=== PATIENT | male | born 1945 | race Caucasian/White ===

== ENCOUNTER 2019-02-10 03:11 | Outpatient (CLI) | payer OTHER | END 2019-02-10 03:12 | disposition critical access hospital (66) | LOC: EMS 03:11 | PROVIDERS: ATTEND Surgery | DX: R07.89 Other chest pain (principal) | CPT/HCPCS: A0425; A0429 ==

== ENCOUNTER 2019-02-10 03:18 | Observation (INO) | payer OTHER ==
[2019-02-10 03:58] LABS: BASOPHILS % (AUTO) 0.5 %; EOSINOPHILS # (AUTO) 0.6 10^3/uL (0.0-0.7); EOSINOPHILS % (AUTO) 7.9 %; HGB - HEMOGLOBIN 13.1 g/dL (14.0-18.0); LYMPHOCYTES # (AUTO) 1.3 10^3/uL (1.5-3.5); LYMPHOCYTES % (AUTO) 18.1 %; MEAN CORPUSCULAR HEMOGLOBIN 32.1 pg (27.0-31.0); MEAN CORPUSCULAR HGB CONC 33.6 g/dL (32.0-36.0); MEAN CORPUSCULAR VOLUME 95.6 fL (80.0-94.0); MEAN PLATELET VOLUME 8.7 fL (7.4-11.4); MONOCYTES # (AUTO) 0.6 10^3/uL (0.0-1.0); MONOCYTES % (AUTO) 8.7 %; NEUTROPHILS # (AUTO) 4.7 10^3/uL (1.5-6.6); NEUTROPHILS % (AUTO) 64.4 %; PLT - PLATELET COUNT 195 10^3/uL (130-450); RED BLOOD COUNT 4.08 10^6/uL (4.70-6.10); RED CELL DISTRIBUTION WIDTH 13.1 % (12.0-15.0); WHITE BLOOD COUNT 7.3 x10^3/uL (4.8-10.8)
--- NOTE | 2019-02-10 04:08 | ED Physician Documentation ---
<Дмитрий Villanueva - Last Filed: 02/10/19 09:33> PD HPI CHEST PAIN - Stated complaint Stated Complaint: CP - Chief complaint Chief Complaint: Cardiac PD PAST MEDICAL HISTORY - Present Medications Home Medications: Ambulatory Orders Medication Instructions Recorded Confirmed Bisacodyl [Dulcolax] 5 mg PO DAILY PRN 02/10/19 02/10/19 Isosorbide Mononitrate [Isosorbide 30 mg PO DAILY 02/10/19 02/10/19 Mononitrate ER] Loratadine [Allergy] 10 mg PO DAILY 02/10/19 02/10/19 Losartan Potassium 25 mg PO DAILY 02/10/19 02/10/19 Nitroglycerin [Nitrostat] 0.4 mg PO [id number] PRN 02/10/19 02/10/19 Pantoprazole Sodium 40 mg PO QDAC 02/10/19 02/10/19 Potassium Chloride 10 meq PO DAILY 02/10/19 02/10/19 Simvastatin 40 mg PO QPM 02/10/19 02/10/19 Tamsulosin HCl [Flomax] 0.4 mg PO QPM 02/10/19 02/10/19 Verapamil HCl [Verapamil ER] 180 mg PO DAILY 02/10/19 02/10/19 Warfarin Sodium 1.25 mg PO TU@2100 02/10/19 02/10/19 Warfarin Sodium 2.5 mg PO SUTUWETHFRSA@2100 02/10/19 02/10/19 - Allergies Allergies/Adverse Reactions: Allergies Allergy/AdvReac Type Severity Reaction Status Date / Time No Known Drug Allergies Allergy Verified 02/10/19 03:25 Procedures - IVC sono (time) 0905 Bedside IVC sono: IVC measures (cm) (1.19), Dehydration (est 1 liter deficit) PD MEDICAL DECISION MAKING - ED course ED course: Patient with episode of chest pain that is resolved on arrival to the emergency department has minimally elevated troponin and this elevates further at 2 hours also in a minimally elevated fashion. He is dehydrated on interrogation the inferior vena cava and is administered saline. He is administered his morning medications for hypertension including verapamil losartan and imdur. He is admitted to observation for rising trop. Departure - Departure Disposition: ED Place in Observation Clinical Impression: Angina pectoris Condition: Stable Discharge Date/Time: 02/10/19 10:50 <Maria Elena Mesa Last Filed: 02/10/19 21:04> PD HPI CHEST PAIN - History obtained from History obtained from: Patient - History of Present Illness Timing - onset: Today Timing - onset during: Sleep Timing - details: Abrupt onset Pain level now: 0 Quality: Pain Location: Left chest Radiation: Left upper extremity Associated symptoms: No: Shortness of air, Nausea, Vomiting, Feeling faint / dizzy, General Weakness, Palpitations, Cough Similar symptoms before: Work up / diagnostics Recently seen: Not recently seen - Additional information Additional information: This is a 73-year-old man with a history of CVA who just moved to [facility] 2 days ago with his who presents by ambulance with c/o chest pain. Patient states that he woke up sometime after midnight and was having pain in the left side of his chest. He notified his who gave him 2 sublingual nitroglycerin tablets but no aspirin and called the ambulance. He does not know how long this pain lasted but it was still present when he was on his way here in the ambulance. He said now it is completely gone and he feels 100% better. Patient says that he has had pain like this before when he was living in [place] but never had a heart attack. He does have a history of stroke and has a brain shunt. At one point he told me "you are asking me questions I do not know the answer to". He did state that he was not short of breath had not felt dizzy and had no nausea or vomiting. He is 100% disabled from the . Review of Systems Unable to obtain: Other (History of stroke) Constitutional: denies: Fever Cardiac: reports: Chest pain / pressure Respiratory: denies: Dyspnea, Cough GI: denies: Nausea, Vomiting Neurologic: reports: Other (Left arm paralysis. Left leg weakness due to prior stroke. He normally ambulates with a cane.) PD PAST MEDICAL HISTORY - Past Medical History Past Medical History: Yes Cardiovascular: Hypertension, High cholesterol Neuro: CVA GI: GERD Other Past Medical History: Constipation; Seasonal Allergies - Past Surgical History Past Surgical History: Yes Ortho: Other Cardiovascular: Coronary stent HEENT: Other - Social History Does the pt smoke?: No Smoking Status: Never smoker Does the pt drink ETOH?: No Does the pt have substance abuse?: No - Immunizations Immunizations are current?: Yes - POLST Patient has POLST: No PD ED PE NORMAL - Vitals Vital signs reviewed: Yes - General General: Alert and oriented X 3, No acute distress, Well developed/nourished - HEENT HEENT: Atraumatic, PERRL, Moist mucous membranes - Neck Neck: No adenopathy, Other (There is a palpable shunt tubing in the right side of his neck) - Cardiac Cardiac: RRR, No murmur, Strong equal pulses - Respiratory Respiratory: No respiratory distress, Clear bilaterally - Abdomen Abdomen: Normal bowel sounds, Soft - Derm Derm: Normal color, Warm and dry, No rash - Extremities Extremities: Other (Flexion contractures of the left upper extremity. There is a flexion contracture at the left ankle. No obvious injury to the extremities.) - Neuro Neuro: Other (He is alert and oriented to the fact that he is at a hospital. He is unable to move the left arm. He can wiggle the toes and has some movement with the left leg. Sensation is intact light touch bilaterally.) - Psych Psych: Normal mood Results - Vitals Vitals: Vital Signs - 24 hr 02/10/19 02/10/19 02/10/19 03:19 03:38 05:29 Temperature 36.9 C Heart Rate 88 93 83 Respiratory 16 15 15 Rate Blood Pressure 193/115 H 182/105 H 179/104 H O2 Saturation 98 97 96 02/10/19 02/10/19 07:53 09:34 Temperature Heart Rate 75 74 Respiratory 14 18 Rate Blood Pressure 210/98 H 206/116 H O2 Saturation 99 99 Oxygen O2 Source Room air - EKG (time done) 0657 Rate: Rate (enter#) (80) Rhythm: NSR Intervals: No: Wide QRS Ischemia: Normal ST segments Compare to prior EKG: Old EKG unavailable 0319 Rate: Rate (enter#) (888) Rhythm: NSR Intervals: No: Wide QRS Ischemia: Normal ST segments Compare to prior EKG: Unchanged from prior EKG - Labs Labs: Laboratory Tests 02/10/19 02/10/19 02/10/19 03:45 03:47 03:47 WBC 7.3 RBC 4.08 L Hgb 13.1 L Hct 39.0 L MCV 95.6 H MCH 32.1 H MCHC 33.6 RDW 13.1 Plt Count 195 MPV 8.7 Neut # (Auto) 4.7 Lymph # (Auto) 1.3 L Benton # (Auto) 0.6 Eos # (Auto) 0.6 Baso # (Auto) 0.0 Absolute Nucleated RBC 0.00 Nucleated RBC % 0.0 PT INR Sodium 145 Potassium 3.7 Chloride 112 H Carbon Dioxide 25 Anion Gap 8.0 BUN 25 H Creatinine 1.1 Estimated GFR (MDRD) 66 L Glucose 106 H Calcium 8.9 Total Bilirubin 0.4 AST 20 ALT 23 Alkaline Phosphatase 99 Troponin I High Sens 23.9 H* Total Protein 6.5 L Albumin 3.5 Globulin 3.0 Albumin/Globulin Ratio 1.2 Lipase 45 02/10/19 02/10/19 03:47 07:10 WBC RBC Hgb Hct MCV MCH MCHC RDW Plt Count MPV Neut # (Auto) Lymph # (Auto) Benton # (Auto) Eos # (Auto) Baso # (Auto) Absolute Nucleated RBC Nucleated RBC % PT 27.0 H INR 2.5 H Sodium Potassium Chloride Carbon Dioxide Anion Gap BUN Creatinine Estimated GFR (MDRD) Glucose Calcium Total Bilirubin AST ALT Alkaline Phosphatase Troponin I High Sens 41.3 H* Total Protein Albumin Globulin Albumin/Globulin Ratio Lipase - Rads (name of study) CXR Radiology: See rad report (Neg acute) PD MEDICAL DECISION MAKING - ED course Complexity details: reviewed results, d/w patient ED course: Patient's EKG does not show a acute ischemic changes. His initial troponin is minimally elevated at 23. Chest x-ray was clear. He was completely pain-free during his emergency department stay. He was given 4 baby aspirin. Repeat troponin and EKG will be obtained. EKG does not show any changes compared to the prior EKG obtained here today. Repeat troponin is pending.
[2019-02-10] MEDS ORDERED: ASPIRIN CHEW 81 MG TABLET PO STA (04:09)
[2019-02-10 04:10] LABS: ALBUMIN 3.5 g/dL (3.2-5.5); ALBUMIN/GLOBULIN RATIO 1.2 (1.0-2.2); BILIRUBIN,TOTAL 0.4 mg/dL (0.2-1.0); CALCIUM 8.9 mg/dL (8.5-10.3); CREATININE 1.1 mg/dL (0.6-1.2); TOTAL PROTEIN 6.5 g/dL (6.7-8.2)
--- NOTE | 2019-02-10 04:50 | XRAY Report ---
Reason: chest pain Procedure Date: 02/10/2019 Accession Number: [id number] / [id number] Procedure: XR - Chest 1 View X-Ray CPT Code: 06783 Final Report FULL RESULT: EXAM: CHEST RADIOGRAPHY EXAM DATE: 02/10/2019 04:41 AM. CLINICAL HISTORY: Chest pain. COMPARISON: None. TECHNIQUE: 1 view. FINDINGS: Lungs/Pleura: No alveolar consolidation or pleural effusion seen. No pneumothorax. Mediastinum: Within exam limitations, the cardiomediastinal contour is normal. Other: LAND DEVELOPMENT PROJECT MANAGER shunt tube overlies the right hemithorax. Old left rib fractures. Degenerative changes in the shoulders. IMPRESSION: 1. No acute cardiopulmonary abnormality seen. RADIA
[2019-02-10 07:38] LABS: INR 2.5 (0.8-1.2)
[2019-02-10] MEDS ORDERED: LOSARTAN 50 MG TABLET PO STA (09:11)
[2019-02-10] MEDS ORDERED: VERAPAMIL ER 180 MG TABLET PO STA (09:11)
[2019-02-10] MEDS ORDERED: ISOSORBIDE MONONITRATE ER 30 MG TABLET PO STA (09:12)
[2019-02-10] MEDS ORDERED: NITROGLYCERIN SL 0.4 MG TABLET SL SCH (10:08)
[2019-02-10] MEDS ORDERED: SODIUM CHLORIDE FLUSH 0.9% 10 ML SYRINGE IVP PRN (12:27)
[2019-02-10] MEDS ORDERED: PROCHLORPERAZINE 10 MG/2 ML VIAL IVP PRN (12:27)
[2019-02-10] MEDS ORDERED: ACETAMINOPHEN 325 MG TABLET PO PRN (12:27)
[2019-02-10] MEDS ORDERED: NITROGLYCERIN SL 0.4 MG TABLET SL PRN (12:28)
[2019-02-10] MEDS ORDERED: BISACODYL 5 MG TABLET PO PRN (12:28)
[2019-02-10] MEDS: SODIUM CHLORIDE FLUSH 0.9% 10 ML SYRINGE IVP SCH (19:08)
[2019-02-10] MEDS ORDERED: WARFARIN 2.5 MG TABLET PO SCH (21:00)
[2019-02-10] MEDS ORDERED: TAMSULOSIN 0.4 MG CAPSULE PO SCH (21:00)
[2019-02-10] MEDS ORDERED: traZODone 50 MG TABLET PO STA (21:38)
[2019-02-10] MEDS: ISOSORBIDE MONONITRATE ER 30 MG TABLET PO SCH (22:02)
[2019-02-10] MEDS: FAMOTIDINE 20 MG TABLET PO SCH (22:02)
--- NOTE | 2019-02-11 00:05 | HISTORY & PHYSICAL EXAMINATION ---
DATE OF SERVICE: 02/10/2019 Physician: Marion Coats MD HISTORY OF PRESENT ILLNESS: This is a 73-year-old white male with a history of stroke, coronary artery disease with stenting approximately 10 years ago in [place], history of a brain aneurysm and SOCKET WELDER HELPER shunt, history of dementia and BPH. The patient and just moved to [facility] yesterday, and their moving truck arrived today. The details of this move are not available, because the patient is a poor historian. The patient awoke in the middle of the night with chest pain for which he took nitroglycerin that was approximately five or more years old and alsso swallowed it. He waited an hour with continued pain and then took a second sublingual nitroglycerin and then a third sublingual, and then an ambulance was called, and he was brought to the emergency room. His chest pain was resolved at the point of coming to the ER, and there has been none since. I called the , who was available at home, who gave me more of the background history as above. The patient cannot give me details, he for example says that "when he had his stroke he was told to use NTG if needed". PAST MEDICAL HISTORY 1. Brain aneurysm unknown course but ultimately needing an intracerebral SOCKET WELDER HELPER shunt. 2. Stroke, affecting his left side. 3. History of coronary artery disease with stents in 2007. 4. Dementia. 5. BPH. ALLERGIES: NONE. MEDICATIONS 1. Sublingual nitroglycerin p.r.n. 2. Warfarin 1.25 alternating with 2.5 mg daily. 3. Protonix daily. 4. Simvastatin 40 mg every night. 5. Dulcolax p.r.n. 6. Flomax 0.4 mg every night. 7. Losartan 25 mg daily. 8. Loratadine 10 mg daily. 9. Imdur 30 mg daily or bid, unclear. 10. Verapamil 180 mg daily. 11. Potassium chloride 10 mEq daily. FAMILY HISTORY: No inherited diseases. SOCIAL HISTORY: The patient was a remote smoker, drinks no alcohol. No illicit drug use. The patient lives with his . They just moved to the [place] yesterday. Other details are not available about his social history. REVIEW OF SYSTEMS: A comprehensive review of systems was performed by speaking to the patient and to the by phone, the pertinent positives are listed, the rest are negative. PHYSICAL EXAMINATION GENERAL: Elderly white male. He has a mild facial droop. His speech is normal. He appears in no distress. VITAL SIGNS: Initial blood pressure was 206/116, and now he is in the 150s-160s over 80s-90s, heart rate is 70-90 and regular, afebrile, room air saturation 97%. HEENT: Reveals a left facial droop of the lower face. He has normal speech. Oral mucosa is moist. NECK: No JVD or carotid bruits. CHEST: Clear. HEART: Normal heart sounds, no murmurs. ABDOMEN: Soft with positive bowel sounds, nontender. No organomegaly. EXTREMITIES: No clubbing, cyanosis, or edema. NEUROLOGIC: Left arm is in a contract position and he does not move it. The left leg has 4/5 strength. The right leg and right arm had normal strength. His memory is poor. LABORATORY DATA: Sodium 145, potassium 3.7, BUN 25, creatinine 1.1. Liver tests normal. Troponin at bedtime was 23, then 41. Normal lipase and bilirubin. White blood count 7.3, hemoglobin 13.1 with MCV high at 95, platelet count normal 195. INR 2.5. CHEST X-RAY: No active pulmonary disease and heart size is within normal limits. A SOCKET WELDER HELPER shunt is seen overlying the right hemithorax. There are old left- sided rib fractures. EKG: Normal sinus rhythm, rate of 88 and within normal limits. IMPRESSION 1. Chest pain, probable angina, which did not respond to old and probably not potent sublingual nitroglycerin. 2. History of coronary artery disease with stents. 3. History of stroke. 4. Dementia. 5. Benign prostatic hypertrophy. 6. Anticoagulated, for unknown diagnosis. PLAN: Place the patient in Observation status on telemetry. Cycle troponins. Recheck his EKG tomorrow for changes. Increase antianginal treatment with Imdur daily to b.i.d. and also I reminded the that he needs fresh Sublingual nitroglycerin. Probable medical management will be advised for this patient unless there is a further increase in his troponin to a high value. The patient will need Cardiology follow-up to consider outpatient stress testing for evaluation of his recurrence of chest pain, that has not happened now in over 10 years, according to the . Continue with his medications for BPH, the anticoagulation, and his cholesterole. Check lipids and treat per guidelines. CODE STATUS: FULL CODE. DEEP VENOUS THROMBOSIS PROPHYLAXIS: He is anticoagulated, add SCDs. ATTESTATION: The patient is expected to be discharged or transferred to another facility within 96 hours: Yes. TD: 02/10/2019 20:05 ANGEL
[2019-02-11] MEDS: SODIUM CHLORIDE FLUSH 0.9% 10 ML SYRINGE IVP SCH ×2 (01:30→08:12)
[2019-02-11 05:48] LABS: BASOPHILS % (AUTO) 0.4 %; EOSINOPHILS # (AUTO) 0.6 10^3/uL (0.0-0.7); EOSINOPHILS % (AUTO) 8.4 %; HGB - HEMOGLOBIN 12.5 g/dL (14.0-18.0); LYMPHOCYTES # (AUTO) 1.4 10^3/uL (1.5-3.5); LYMPHOCYTES % (AUTO) 20.2 %; MEAN CORPUSCULAR HEMOGLOBIN 31.3 pg (27.0-31.0); MEAN CORPUSCULAR HGB CONC 32.8 g/dL (32.0-36.0); MEAN CORPUSCULAR VOLUME 95.3 fL (80.0-94.0); MEAN PLATELET VOLUME 9.2 fL (7.4-11.4); MONOCYTES # (AUTO) 0.6 10^3/uL (0.0-1.0); MONOCYTES % (AUTO) 8.1 %; NEUTROPHILS # (AUTO) 4.3 10^3/uL (1.5-6.6); NEUTROPHILS % (AUTO) 62.6 %; PLT - PLATELET COUNT 196 10^3/uL (130-450); WHITE BLOOD COUNT 6.9 x10^3/uL (4.8-10.8)
[2019-02-11 05:56] LABS: INR 2.5 (0.8-1.2); PT - PROTHROMBIN TIME 27.5 secs (9.9-12.6)
[2019-02-11 06:08] LABS: BUN - BLOOD UREA NITROGEN 21 mg/dL (6-20); CALCIUM 8.8 mg/dL (8.5-10.3); CARBON DIOXIDE - CO2 25 mmol/L (21-32); CHLORIDE 109 mmol/L (101-111); CHOL/HDL RATIO 5.4 (<5.0); CHOLESTEROL 189 mg/dL; GFR - MDRD 73 (>89); GLUCOSE 94 mg/dL (70-100); HDL CHOLESTEROL 35 mg/dL; LDL CHOLESTEROL,CALCULATED 118 mg/dL; LDL/HDL RATIO 3.4 (<3.6); SODIUM 141 mmol/L (135-145); VLDL CHOLESTEROL 36 mg/dL
[2019-02-11] MEDS: FAMOTIDINE 20 MG TABLET PO SCH (08:11)
[2019-02-11] MEDS: ISOSORBIDE MONONITRATE ER 30 MG TABLET PO SCH (08:11)
[2019-02-11] MEDS ORDERED: ISOSORBIDE MONONITRATE ER 30 MG TABLET PO SCH (09:00)
[2019-02-11] MEDS ORDERED: FENOFIBRATE 48 MG TABLET PO SCH (09:00)
[2019-02-11] MEDS ORDERED: LORATADINE 10 MG TABLET PO SCH (09:00)
[2019-02-11] MEDS ORDERED: LOSARTAN 50 MG TABLET PO SCH (09:00)
[2019-02-11] MEDS ORDERED: ASPIRIN EC 81 MG TABLET PO SCH (09:00)
[2019-02-11] MEDS ORDERED: VERAPAMIL ER 180 MG TABLET PO SCH (09:00)
--- NOTE | 2019-02-11 11:57 | Discharge Plan ---
Discharge Plan Problem Reviewed?: Yes Disposition: Home, Self Care Condition: Stable Prescriptions: Nitroglycerin [Nitrostat] 0.4 mg SL Q5MIN PRN #100 tablet PRN Reason: Chest Pain Isosorbide Mononitrate ER [Imdur] 30 mg PO BID #14 tablet Diet: Cardiac Activity Restrictions: Activity as Tolerated Assistance Devices: Cane, Other (Brace) Instruction Topics: Nitroglycerin Fast Acting, Angina, Nitroglycerin Long Acting Health Concerns: You were here after an episode of angina, brought on by the current stress of moving your household to [facility] from [place], [place] and from running out of the Isosorbide tablets. Plan of Treatment: Fresh prescriptions for sublingual Nitroglycerine as needed and the long-acting Isordil have been prescribed. Resume all your other usual medications. You need to establish care with a Primary Care Provider and Instructor Of Spanish. Care Goals: Goals are to stabilize symptoms, establish care with a local doctor and a Instructor Of Spanish. Assessment: The patient and understand and are in agreement with the plan. No Smoking: If you smoke, Please STOP! Call for help.
--- NOTE | 2019-02-11 12:21 | DISCHARGE SUMMARY ---
Discharge Summary Admit Date: 02/10/19 Discharge Date: 02/11/19 Discharging Provider: Dr Marion Coats Primary Care Provider: None Code Status: Attempt Resuscitation Condition at Discharge: Stable Discharge Disposition: 01 Home, Self Care - DIAGNOSES Admission Diagnoses: 1) Chest pain 2) Hx CAD 3) Hx CVA 4) Dementia 5) BPH 6) Anticoagulated Discharge Diagnoses with Status of Each Condition: See below - HPI History of Present Illness: This is a 73-year-old white male with a history of BPH, dementia, prior CVA, left arm is contracted and he uses a brace to walk, and he moved with his 2 days ago from [facility] to [facility]. He awoke with chest pain and swallowed a sublingual nitroglycerin, had no relief, then took 2 more sublingual nitroglycerin correctly and an ambulance was called. He had no chest pain on presentation. His gave me the history (by phone) of CAD with stents 10 years ago and no chest pain since that time, and the nitroglycerin sublingual is at least 5 years old. The first hs-troponin was 23 but the next lindy to 40 and he was placed in Observation for evaluating chest pain. - HOSPITAL COURSE Hospital Course: 1) Chest pain. This was angina from the [place], plus using out-of-date sl NTG (that were at least 5 years old). Also, the revealed that she has been unable to give the patient his usual Isordil b.i.d. doses for 2 days, because she cannot find it in the moving boxes or they have run out. The hs- troponins did nearly double from 23 to 41 (then went down to 27), but the follow-up EKG showed no changes from the first EKG and was overall WNL. He was given new prescriptions for sl NTG and a 1 week prescription for Isrdil 30 mg po b.i.d., while [facility] He was discharged is stable condition, with no further chest pain, even during ambulation while here, and was advised to establish with a PCP and Concrete Float Maker. 2) Hx of CAD He was kept on his statin and other meds 3) Hx CVA He ambulates with a cane and a brace on his leg 4) S/P BAND SHOVER shunt This was placed "after being diagnosed with a cerebral aneurysm", per the . It is unclear if it created a hemorrhage and raised intra-cranial pressure, since we have no records. 5) Dementia He has poor short term memory 6) BPH His meds were continued 7) Anticoagulated He is in sinus rhythm, therefore the diagnosis that required the anticoagulation is unknown. He was kept on his same dose since the INR was 2.5. 8) ASSINIBOINE AND [place] TRIBES He wears a hearing aide. - ALLERGIES Allergies/Adverse Reactions: Allergies Allergy/AdvReac Type Severity Reaction Status Date / Time No Known Drug Allergies Allergy Verified 02/10/19 03:25 - MEDICATIONS Home Medications: Ambulatory Orders Medication Instructions Recorded Confirmed Bisacodyl [Dulcolax] 5 mg PO DAILY PRN 02/10/19 02/10/19 Isosorbide Mononitrate [Isosorbide 30 mg PO DAILY 02/10/19 02/10/19 Mononitrate ER] Loratadine [Allergy] 10 mg PO DAILY 02/10/19 02/10/19 Losartan Potassium 25 mg PO DAILY 02/10/19 02/10/19 Nitroglycerin [Nitrostat] 0.4 mg PO [id number] PRN 02/10/19 02/10/19 Pantoprazole Sodium 40 mg PO QDAC 02/10/19 02/10/19 Potassium Chloride 10 meq PO DAILY 02/10/19 02/10/19 Simvastatin 40 mg PO QPM 02/10/19 02/10/19 Tamsulosin HCl [Flomax] 0.4 mg PO QPM 02/10/19 02/10/19 Verapamil HCl [Verapamil ER] 180 mg PO DAILY 02/10/19 02/10/19 Warfarin Sodium 1.25 mg PO TU@209902/10/19 02/10/19 Warfarin Sodium 2.5 mg PO SUTUWETHFRSA@2100 02/10/19 02/10/19 Isosorbide Mononitrate ER [Imdur] 30 mg PO BID #14 tablet 02/11/19 Nitroglycerin [Nitrostat] 0.4 mg SL Q5MIN PRN #100 tablet 02/11/19 - PHYSICAL EXAM AT DISCHARGE General Appearance: positive: No acute distress, Alert Eyes Bilateral: positive: Other (ASSINIBOINE AND [place] TRIBES) ENT: positive: No signs of dehydration Neck: positive: Nml inspection, No JVD Respiratory: positive: No respiratory distress, Breath sounds nml Cardiovascular: positive: Regular rate & rhythm, No murmur Abdomen: positive: Non-tender, No distention Skin: positive: Color nml Extremities: positive: No pedal edema Neurologic/Psychiatric: positive: Other (L arm and hand contracture, mild L facial dropp, L leg has 4/5 strength) - LABS Result Diagrams: 02/11/19 05:22 02/11/19 05:22 - DIAGNOSTIC IMAGING Diagnostic Imaging Results: Final report reviewed - FOLLOW UP Follow Up: He needs to establish with a [facility] P[facility] or a local PCP. - TIME SPENT Time Spent in Discharge (Minutes): 30
[2019-02-11 13:24] VITALS: BP 177/95
[2019-02-11] MEDS ORDERED: ATORVASTATIN 10 MG TABLET PO SCH (21:00)
[2019-02-13] MEDS ORDERED: WARFARIN 2.5 MG TABLET PO SCH (21:00)
== END 2019-02-11 12:38 | disposition home or self-care (01) ==
LOC: ED 03:18 → MS2 10:04
PROVIDERS: ADMIT Internal Medicine; ATTEND Internal Medicine
DX: I25.119 Atherosclerotic heart disease of native coronary artery with unspecified angina pectoris (principal); I10 Essential (primary) hypertension; I69.354 Hemiplegia and hemiparesis following cerebral infarction affecting left non-dominant side; F03.90 Unspecified dementia, unspecified severity, without behavioral disturbance, psychotic disturbance, mood disturbance, and anxiety; N40.0 Benign prostatic hyperplasia without lower urinary tract symptoms; Z79.01 Long term (current) use of anticoagulants; H91.90 Unspecified hearing loss, unspecified ear; Z95.5 Presence of coronary angioplasty implant and graft; Z98.2 Presence of cerebrospinal fluid drainage device; Z87.891 Personal history of nicotine dependence; E86.0 Dehydration; E78.00 Pure hypercholesterolemia, unspecified
CPT/HCPCS: 36415; 71045; 80048; 80053; 80061; 83690; 84484; 85025; 85610; 93005; 97161; 99284; 99285; A9270; G0378; 83721

== ENCOUNTER 2019-04-12 22:24 | Outpatient (CLI) | payer OTHER | END 2019-04-12 22:25 | disposition EMS.NT | LOC: EMS 22:24 | PROVIDERS: ATTEND Surgery | DX: Z03.89 Encounter for observation for other suspected diseases and conditions ruled out (principal) ==

== ENCOUNTER 2019-05-03 13:12 | Outpatient (CLI) | payer OTHER, MEDICARE | END 2019-05-03 13:13 | disposition home or self-care (01) | LOC: LAB 13:12 | PROVIDERS: ATTEND Internal Medicine | DX: Z79.01 Long term (current) use of anticoagulants (principal) | CPT/HCPCS: 85610 ==

== ENCOUNTER 2019-05-04 01:40 | Outpatient (CLI) | payer OTHER | END 2019-05-04 01:41 | disposition critical access hospital (66) | LOC: EMS 01:40 | PROVIDERS: ATTEND Surgery | DX: R07.89 Other chest pain (principal) | CPT/HCPCS: A0425; A0427 ==

== ENCOUNTER 2019-05-04 01:41 | Emergency (ER) | payer MEDICARE, OTHER ==
--- NOTE | 2019-05-04 01:43 | ED Physician Documentation ---
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 denies any hx of pe/dvt.) Review of Systems Ten Systems: 10 systems reviewed and negative Constitutional: reports: Reviewed and negative Eyes: reports: Reviewed and negative Ears: reports: Reviewed and negative Nose: reports: Reviewed and negative Throat: reports: Reviewed and negative Cardiac: reports: Chest pain / pressure Respiratory: reports: Reviewed and negative GI: reports: Reviewed and negative : reports: Reviewed and negative Skin: reports: Reviewed and negative Musculoskeletal: reports: Reviewed and negative Neurologic: reports: Reviewed and negative Psychiatric: reports: Reviewed and negative Endocrine: reports: Reviewed and negative Immunocompromised: reports: Reviewed and negative PD PAST MEDICAL HISTORY - Present Medications Home Medications: Ambulatory Orders Medication Instructions Recorded Confirmed Isosorbide Mononitrate [Isosorbide 30 mg PO DAILY 02/10/19 02/10/19 Mononitrate ER] Loratadine [Allergy] 10 mg PO DAILY 02/10/19 02/10/19 Losartan Potassium 25 mg PO DAILY 02/10/19 02/10/19 Nitroglycerin [Nitrostat] 0.4 mg PO [id number] PRN 02/10/19 02/10/19 Pantoprazole Sodium 40 mg PO QDAC 02/10/19 02/10/19 Potassium Chloride 10 meq PO DAILY 02/10/19 02/10/19 Simvastatin 40 mg PO QPM 02/10/19 02/10/19 Tamsulosin HCl [Flomax] 0.4 mg PO QPM 02/10/19 02/10/19 Verapamil HCl [Verapamil ER] 180 mg PO DAILY 02/10/19 02/10/19 Warfarin Sodium 1.25 mg PO TU@209902/10/19 02/10/19 Warfarin Sodium 2.5 mg PO [id number]@2100 02/10/19 02/10/19 bisacodyL [Dulcolax] 5 mg PO DAILY PRN 02/10/19 02/10/19 Isosorbide Mononitrate ER [Imdur] 30 mg PO BID #14 tablet 02/11/19 Nitroglycerin [Nitrostat] 0.4 mg SL Q5MIN PRN #100 tablet 02/11/19 Nitroglycerin 0.4 mg SL Q5MIN PRN #7 tab.subl 05/04/19 - Allergies Allergies/Adverse Reactions: Allergies Allergy/AdvReac Type Severity Reaction Status Date / Time No Known Drug Allergies Allergy Verified 02/10/19 03:25 PD ED PE NORMAL - Vitals Vital signs reviewed: Yes - General General: Alert and oriented X 3, No acute distress, Well developed/nourished - HEENT HEENT: Atraumatic, PERRL, Pharynx benign - Neck Neck: Supple, no meningeal sign, No JVD, No bruit - Cardiac Cardiac: RRR, Strong equal pulses - Respiratory Respiratory: No respiratory distress, Clear bilaterally - Abdomen Abdomen: Normal bowel sounds, Soft, Non tender, Non distended - Derm Derm: Warm and dry, Other (scar on scalp from previous craniotomy.) - Extremities Extremities: Other (contraction of LUE and weaknes of LLE. both chronic in nature. ) - Neuro Neuro: Alert and oriented X 3 - Psych Psych: Normal mood, Normal affect Results - Vitals Vitals: Vital Signs - 24 hr 05/04/19 05/04/19 05/04/19 01:45 03:15 03:30 Temperature 36.7 C Heart Rate 77 72 76 Respiratory 18 15 16 Rate Blood Pressure 175/108 H 172/87 H 176/92 H O2 Saturation 94 94 96 Oxygen O2 Source Room air - EKG (time done) 01:46 Rate: Other (124 a-fib no stemi) Rhythm: Atrial fibrillation [place]: Normal Intervals: Prolonged QT Ischemia: Non specific changes 03:39 Rate: Rate (enter#) (74) Rhythm: NSR [place]: LAD Intervals: Normal [place] QRS: Normal Ischemia: Non specific changes Compare to prior EKG: Changed from prior EKG Computer interpretation: Agree with computer - Labs Labs: Laboratory Tests 05/04/19 05/04/19 05/04/19 01:59 02:55 02:55 WBC 10.4 RBC 4.08 L Hgb 12.8 L Hct 38.6 L MCV 94.6 H MCH 31.4 H MCHC 33.2 RDW 13.4 Plt Count 165 MPV 8.8 Neut # (Auto) 7.5 H Lymph # (Auto) 1.4 L [place] # (Auto) 0.7 Eos # (Auto) 0.6 Baso # (Auto) 0.0 Absolute Nucleated RBC 0.00 Nucleated RBC % 0.0 PT 14.2 H INR 1.3 H APTT 26.6 Sodium 144 Potassium 3.7 Chloride 109 Carbon Dioxide 24 Anion Gap 11.0 BUN 26 H Creatinine 1.0 Estimated GFR (MDRD) 73 L Glucose 105 H Calcium 8.7 Total Bilirubin 0.5 AST 18 ALT 18 Alkaline Phosphatase 103 Total Creatine Kinase 31 Troponin I High Sens B-Natriuretic Peptide Total Protein 6.4 L Albumin 3.4 Globulin 3.0 Albumin/Globulin Ratio 1.1 Lipase 48 05/04/19 05/04/19 05/04/19 02:55 02:55 03:45 WBC RBC Hgb Hct MCV MCH MCHC RDW Plt Count MPV Neut # (Auto) Lymph # (Auto) [place] # (Auto) Eos # (Auto) Baso # (Auto) Absolute Nucleated RBC Nucleated RBC % PT INR APTT Sodium Potassium Chloride Carbon Dioxide Anion Gap BUN Creatinine Estimated GFR (MDRD) Glucose Calcium Total Bilirubin AST ALT Alkaline Phosphatase Total Creatine Kinase Troponin I High Sens 10.6 14.5 B-Natriuretic Peptide 68 Total Protein Albumin Globulin Albumin/Globulin Ratio Lipase PD MEDICAL DECISION MAKING - ED course Complexity details: reviewed old records (shows previous hx of cad and recent admission for rule out. ), re-evaluated patient (patient updated. he is pain free. will provide a short term prescription for sl nitro. ekg neg x 2, trop neg x 2, although a delta trop is noted but still negative also compared to previous elevated trops on previous admission. did discuss observation/admission and patient would like to be dcd home at this time.) Departure - Departure Disposition: 01 Home, Self Care Clinical Impression: Chest pain Qualifiers: Chest pain type: unspecified Qualified Code(s): R07.9 - Chest pain, unspecified Condition: Good Instructions: Angina Dc Follow-Up: YOUR,DOCTOR [Other] - 05/04/19 Prescriptions: Nitroglycerin 0.4 mg SL Q5MIN PRN #7 tab.subl PRN Reason: Chest Pain Comments: FOLLOW UP WITH YOUR DOCTOR TODAY.
[2019-05-04 02:31] LABS: INR 1.3 (0.8-1.2); PT - PROTHROMBIN TIME 14.2 secs (9.9-12.6)
[2019-05-04 02:38] LABS: PARTIAL THROMBOPLASTIN TIME 26.6 secs (24.9-33.3)
--- NOTE | 2019-05-04 02:41 | XRAY Report ---
Reason: cp Procedure Date: 05/04/2019 Accession Number: [id number] / [id number] Procedure: XR - Chest 1 View X-Ray CPT Code: 11003 Final Report FULL RESULT: EXAM: CHEST RADIOGRAPHY EXAM DATE: 05/04/2019 02:21 AM. CLINICAL HISTORY: Chest pain. COMPARISON: CHEST 1 VIEW 02/10/2019 4:23 AM. TECHNIQUE: 1 view. FINDINGS: Lungs/Pleura: No alveolar consolidation or pleural effusion seen. No pneumothorax. Mediastinum: Within exam limitations, the cardiomediastinal contour is normal. Other: Degenerative changes in the shoulders. Old left rib fractures. [employer] shunt tube overlies the right hemithorax. IMPRESSION: 1. No acute abnormality seen in the chest. RADIA
[2019-05-04 02:59] LABS: BASOPHILS % (AUTO) 0.4 %; EOSINOPHILS # (AUTO) 0.6 10^3/uL (0.0-0.7); EOSINOPHILS % (AUTO) 5.9 %; HGB - HEMOGLOBIN 12.8 g/dL (14.0-18.0); LYMPHOCYTES # (AUTO) 1.4 10^3/uL (1.5-3.5); LYMPHOCYTES % (AUTO) 13.8 %; MEAN CORPUSCULAR HEMOGLOBIN 31.4 pg (27.0-31.0); MEAN CORPUSCULAR HGB CONC 33.2 g/dL (32.0-36.0); MEAN CORPUSCULAR VOLUME 94.6 fL (80.0-94.0); MEAN PLATELET VOLUME 8.8 fL (7.4-11.4); MONOCYTES # (AUTO) 0.7 10^3/uL (0.0-1.0); MONOCYTES % (AUTO) 6.7 %; NEUTROPHILS # (AUTO) 7.5 10^3/uL (1.5-6.6); NEUTROPHILS % (AUTO) 72.8 %; PLT - PLATELET COUNT 165 10^3/uL (130-450); RED BLOOD COUNT 4.08 10^6/uL (4.70-6.10); RED CELL DISTRIBUTION WIDTH 13.4 % (12.0-15.0); WHITE BLOOD COUNT 10.4 x10^3/uL (4.8-10.8)
[2019-05-04 03:14] LABS: ALBUMIN 3.4 g/dL (3.2-5.5); ALBUMIN/GLOBULIN RATIO 1.1 (1.0-2.2); BILIRUBIN,TOTAL 0.5 mg/dL (0.2-1.0); CALCIUM 8.7 mg/dL (8.5-10.3); TOTAL PROTEIN 6.4 g/dL (6.7-8.2)
[2019-05-04 04:49] VITALS: BP 157/90
== END 2019-05-04 04:48 | disposition home or self-care (01) ==
LOC: EDUNIT# → ED 01:41
DX: R07.9 Chest pain, unspecified (principal)
CPT/HCPCS: 36415; 71045; 80053; 82550; 83690; 83880; 84484; 85025; 85610; 85730; 93005; 99283; 99284

== ENCOUNTER 2019-05-04 04:51 | Outpatient (CLI) | payer OTHER | END 2019-05-04 04:52 | disposition home or self-care (01) | LOC: EMS 04:51 | PROVIDERS: ATTEND Surgery | DX: R07.9 Chest pain, unspecified (principal); I69.354 Hemiplegia and hemiparesis following cerebral infarction affecting left non-dominant side | CPT/HCPCS: A0425; A0428 ==

== ENCOUNTER 2019-05-09 12:08 | Outpatient (CLI) | payer OTHER, MEDICARE | END 2019-05-09 12:09 | disposition home or self-care (01) | LOC: LAB 12:08 | PROVIDERS: ATTEND Internal Medicine | DX: Z79.01 Long term (current) use of anticoagulants (principal) | CPT/HCPCS: 85610 ==

== ENCOUNTER 2019-05-18 11:33 | Outpatient (CLI) | payer OTHER, MEDICARE | END 2019-05-18 11:34 | disposition home or self-care (01) | LOC: LAB 11:33 | PROVIDERS: ATTEND Internal Medicine | DX: Z79.01 Long term (current) use of anticoagulants (principal) | CPT/HCPCS: 85610 ==

== ENCOUNTER 2019-05-24 10:11 | Outpatient (CLI) | payer MEDICARE, OTHER | END 2019-05-24 10:12 | disposition home or self-care (01) | LOC: LAB 10:11 | PROVIDERS: ATTEND Internal Medicine | DX: Z79.01 Long term (current) use of anticoagulants (principal) | CPT/HCPCS: 85610 ==

== ENCOUNTER 2019-05-31 11:51 | Outpatient (CLI) | payer OTHER | END 2019-05-31 11:52 | disposition home or self-care (01) | LOC: LAB 11:51 | PROVIDERS: ATTEND Internal Medicine | DX: Z79.01 Long term (current) use of anticoagulants (principal) | CPT/HCPCS: 85610 ==

== ENCOUNTER 2019-06-29 11:46 | Outpatient (CLI) | payer OTHER | END 2019-06-29 11:47 | disposition home or self-care (01) | LOC: LAB 11:46 | PROVIDERS: ATTEND Internal Medicine | DX: Z79.01 Long term (current) use of anticoagulants (principal) | CPT/HCPCS: 85610 ==

== ENCOUNTER 2019-08-07 17:07 | Outpatient (CLI) | payer OTHER | END 2019-08-07 23:59 | disposition home or self-care (01) | LOC: COV 17:07 | PROVIDERS: ATTEND Internal Medicine | DX: Z11.59 Encounter for screening for other viral diseases (principal) | CPT/HCPCS: 81599 ==

== ENCOUNTER 2019-10-30 14:11 | Outpatient (CLI) | payer OTHER ==
[2019-10-30 14:35] LABS: BASOPHILS # (AUTO) 0.1 10^3/uL (0.0-0.1); BASOPHILS % (AUTO) 0.5 %; EOSINOPHILS # (AUTO) 0.6 10^3/uL (0.0-0.7); EOSINOPHILS % (AUTO) 5.3 %; HGB - HEMOGLOBIN 13.2 g/dL (14.0-18.0); LYMPHOCYTES # (AUTO) 2.4 10^3/uL (1.5-3.5); LYMPHOCYTES % (AUTO) 21.2 %; MEAN CORPUSCULAR HEMOGLOBIN 32.8 pg (27.0-31.0); MEAN CORPUSCULAR HGB CONC 33.8 g/dL (32.0-36.0); MEAN CORPUSCULAR VOLUME 97.3 fL (80.0-94.0); MEAN PLATELET VOLUME 8.5 fL (7.4-11.4); MONOCYTES # (AUTO) 0.8 10^3/uL (0.0-1.0); MONOCYTES % (AUTO) 6.9 %; NEUTROPHILS # (AUTO) 7.6 10^3/uL (1.5-6.6); NEUTROPHILS % (AUTO) 65.5 %; PLT - PLATELET COUNT 239 10^3/uL (130-450); RED BLOOD COUNT 4.02 10^6/uL (4.70-6.10); RED CELL DISTRIBUTION WIDTH 12.6 % (12.0-15.0); WHITE BLOOD COUNT 11.5 x10^3/uL (4.8-10.8)
[2019-10-30 14:52] LABS: BUN - BLOOD UREA NITROGEN 20 mg/dL (6-20); CALCIUM 8.5 mg/dL (8.5-10.3); CARBON DIOXIDE - CO2 28 mmol/L (21-32); CHLORIDE 104 mmol/L (101-111); CHOL/HDL RATIO 3.1 (<5.0); CHOLESTEROL 119 mg/dL; GLUCOSE 96 mg/dL (70-100); HDL CHOLESTEROL 38 mg/dL; LDL CHOLESTEROL,CALCULATED 56 mg/dL; LDL/HDL RATIO 1.5 (<3.6); SODIUM 137 mmol/L (135-145); VLDL CHOLESTEROL 25 mg/dL
== END 2019-10-30 14:12 | disposition home or self-care (01) ==
LOC: LAB 14:11
PROVIDERS: ATTEND Internal Medicine Cardiovascular Disease
DX: I25.10 Atherosclerotic heart disease of native coronary artery without angina pectoris (principal)
CPT/HCPCS: 36415; 80048; 80061; 83721; 85025

== ENCOUNTER 2020-02-08 11:21 | Outpatient (CLI) | payer OTHER ==
[2020-02-08] MEDS ORDERED: IOVERSOL 320 100 ML VIAL IVP ONE (12:07)
== END 2020-02-08 11:22 | disposition home or self-care (01) ==
LOC: LAB 11:21
PROVIDERS: ATTEND Surgery
DX: R22.9 Localized swelling, mass and lump, unspecified (principal)
CPT/HCPCS: 36415; 82565

== ENCOUNTER 2020-02-12 11:56 | Outpatient (CLI) | payer OTHER ==
[2020-02-12] MEDS ORDERED: IOVERSOL 320 100 ML VIAL IVP ONE ×2 (12:10→12:44)
[2020-02-12] MEDS: IOVERSOL 320 100 ML VIAL IVP ONE (13:12)
--- NOTE | 2020-02-12 15:59 | CT Report ---
PROCEDURE: ABDOMEN W/WO INDICATIONS: RT RENAL MASS CONTRAST: IV CONTRAST: Optiray 320 ml: 140 PO CONTRAST: *NO PO CONTRAST TECHNIQUE: 4 phase scanning was performed. After the administration of intravenous contrast, 5 mm thick section s acquired from the diaphragm to the symphysis. 5 mm coronal and sagittal reformats were acquired. For radiation dose reduction, the following was used: automated exposure control, adjustment of mA a nd/or kV according to patient size. COMPARISON: 10/19/2019. FINDINGS: Image quality: Excellent. Lung bases: Bibasilar atelectasis. Heart size is normal. Moderate amount of atherosclerotic calcifi cations of the coronary arteries. Kidneys: The kidneys are stable in size and appearance without evidence for nephrolithiasis or obstru ctive uropathy. There is a subcentimeter medial left renal cyst. There is a nonenhancing, 1.6 cm hype rdense cyst involving the posterior lateral medial margin of the right kidney. The previously describ ed partially exophytic mass involving the posterior margin of the midpole/inferior right kidney is ag ain noted. It measures approximately 4.6 x 3.6 cm (axial image 31, series 7), stable. It demonstrates internal soft tissue components which do not enhance between precontrast and postcontrast. There is macroscopic fat circumferentially this mass. There are a few peripheral calcification superiorly. No evidence for invasion into the adjacent vascular structures. Other solid organs: Liver demonstrates homogeneous enhancement without focal intrahepatic lesions. G allbladder contains numerous gallstones without evidence for acute cholecystitis. Biliary system is non dilated. Pancreas is normal in morphology. Spleen is normal in size and enhancement. No adrena l nodules. Both kidneys demonstrate normal size and enhancement, without hydronephrosis or nephrolit hiasis. Nodes and vessels: No retroperitoneal or mesenteric adenopathy by size criteria. Aorta and inferior vena cava are normal in size. Atherosclerotic calcifications are present within the abdominal aorta. Bowel and peritoneum: Unenhanced bowel loops are normal in caliber. No free fluid or air. Normal a ppendix. Bones: No suspicious bony lesions. No acute vertebral body compression fractures. Redemonstration o f anterior compression deformities of T12 and L1. Miscellaneous: No ventral hernias. Ventriculoperitoneal shunt is partially imaged. IMPRESSION: 1. 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 There are also peripheral calcifications. Findings are not typical for angiomyolipoma and renal cell carcinoma cannot be completely excluded. C onsider further evaluation with biopsy. 2. Multiple bilateral renal cysts. Some are hyperdense renal cysts. 3. Cholelithiasis without CT evidence for acute cholecystitis. 4. Stable anterior compression deformities of the T12 and L1 vertebral bodies. Reviewed by: Darwin Arndt MD on 02/12/2020 3:58 PM PST Approved by: Darwin Arndt MD on 02/12/2020 3:58 PM PST Station ID: [id number]
== END 2020-02-12 11:57 | disposition home or self-care (01) ==
LOC: DI 11:56
PROVIDERS: ATTEND Surgery
DX: N28.89 Other specified disorders of kidney and ureter (principal); N28.1 Cyst of kidney, acquired; K80.20 Calculus of gallbladder without cholecystitis without obstruction
CPT/HCPCS: 74170; Q9967

== ENCOUNTER 2020-07-21 20:13 | Outpatient (CLI) | payer OTHER | END 2020-07-21 20:14 | disposition home or self-care (01) | LOC: COV 20:13 | PROVIDERS: ATTEND Surgery | DX: Z01.812 Encounter for preprocedural laboratory examination (principal); K92.2 Gastrointestinal hemorrhage, unspecified; Z12.11 Encounter for screening for malignant neoplasm of colon; Z20.822 Contact with and (suspected) exposure to COVID-19 ==

== ENCOUNTER 2020-07-24 12:43 | Day surgery (SDC) | payer OTHER ==
[2020-07-24] MEDS ORDERED: LACTATED RINGERS 1,000 ML IV ONE ×2 (13:44→14:52)
--- NOTE | 2020-07-24 13:48 | ANESTHESIA ---
Pre-Anesthesia VS, & Labs - Diagnosis GI hemorrhage and screening exam - Procedure EGD and colonoscopy Vital Signs: Temp Pulse Resp BP Pulse Ox 36.0 C L 63 15 144/80 H 98 07/24/20 13:00 07/24/20 13:00 07/24/20 13:00 07/24/20 13:00 07/24/20 13:00 Height: 5 ft 10 in Weight (kg): 75 kg Body Mass Index: 23.7 BMI Classification: Healthy weight - NPO >8 hours Home Medications and Allergies Isosorbide Mononitrate [Isosorbide Mononitrate ER] 30 mg PO DAILY 02/10/19 Loratadine [Allergy] 10 mg PO DAILY 02/10/19 Losartan Potassium 100 mg PO DAILY 02/10/19 Nitroglycerin [Nitrostat] 0.4 mg PO [id number] PRN 02/10/19 Simvastatin 40 mg PO QPM 02/10/19 Tamsulosin HCl [Flomax] 0.4 mg PO QPM 02/10/19 Verapamil HCl [Verapamil ER] 180 mg PO DAILY 02/10/19 bisacodyL [Dulcolax] 5 mg PO DAILY PRN 02/10/19 Metoprolol Tartrate 100 mg PO BID 10/19/19 Allergies/Adverse Reactions: Allergies Allergy/AdvReac Type Severity Reaction Status Date / Time No Known Drug Allergies Allergy Verified 10/19/19 09:49 Anes History & Medical History - Anesthetic History Anesthesia Complications: reports: No previous complications - Medical History Cardiovascular: reports: Hypertension, High cholesterol, Coronary artery disease, Other (Stent placement. 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) Musculoskeletal: reports: Other Endocrine/Autoimmune: reports: None Skin: reports: None Smoking Status: Former smoker Psychosocial: reports: No issues indicated History of Cancer?: No - Surgical History Eyes Ears Nose Throat (EENT): reports: Other Cardiothoracic: reports: Coronary stent Orthopedic: reports: Other Exam General: Alert, Oriented x3, Cooperative, No acute distress Dental: WNL Mouth Openin Fingerbreadth Neck Mobility: Normal Mallampati classification: II Thyromental Distance: less than 4 cm Mental/Cognitive Status: Alert/Oriented X3, Normal for patient Plan Anesthesia Type: Total IV Consent for Procedure(s) Verified and Reviewed: Yes Code Status: Attempt Resuscitation ASA classification: 3-Severe systemic disease Is this case an emergency?: No
[2020-07-24] MEDS ORDERED: fentaNYL 100 MCG/2 ML VIAL ONE (13:54)
[2020-07-24] MEDS ORDERED: PROPOFOL 200 MG/20 ML VIAL IVP ONE ×2 (13:54→13:55)
[2020-07-24] MEDS ORDERED: ePHEDrine 50 MG/ML VIAL IVP ONE (14:29)
[2020-07-24 15:16] VITALS: BP 140/67
--- NOTE | 2020-07-24 16:59 | ANESTHESIA POST OP EVALUATION ---
Anesthesia Post Eval - Post Anesthesia Eval Vitals: Last Vital Signs Temp 36.4 C L 07/24/20 14:55 Pulse 67 07/24/20 15:16 Resp 14 07/24/20 15:16 BP 140/67 H 07/24/20 15:16 Pulse Ox 97 07/24/20 15:16 CV Function Including HR & BP: Stable Pain Control: Satisfactory Nausea & Vomiting: Negative Mental Status: Baseline Respiratory Status: Airway Patent Hydration Status: Satisfactory Anesthesia Complications: None
== END 2020-07-24 12:44 | disposition home or self-care (01) ==
LOC: SDS 12:43
PROVIDERS: ATTEND Surgery
PROC: 0DB48ZX Excision of Esophagogastric Junction, Via Natural or Artificial Opening Endoscopic, Diagnostic (ICD-10-PCS; principal; 2020-07-24 13:45)
PROC: 0DBN8ZZ Excision of Sigmoid Colon, Via Natural or Artificial Opening Endoscopic (ICD-10-PCS; 2020-07-24 13:45)
DX: D12.5 Benign neoplasm of sigmoid colon (principal); K22.70 Barrett's esophagus without dysplasia; K29.50 Unspecified chronic gastritis without bleeding; K44.9 Diaphragmatic hernia without obstruction or gangrene; K57.30 Diverticulosis of large intestine without perforation or abscess without bleeding; K64.8 Other hemorrhoids; K64.4 Residual hemorrhoidal skin tags; D64.9 Anemia, unspecified; I10 Essential (primary) hypertension; E78.00 Pure hypercholesterolemia, unspecified; I25.10 Atherosclerotic heart disease of native coronary artery without angina pectoris; K21.9 Gastro-esophageal reflux disease without esophagitis; I69.954 Hemiplegia and hemiparesis following unspecified cerebrovascular disease affecting left non-dominant side; I69.911 Memory deficit following unspecified cerebrovascular disease; Z95.5 Presence of coronary angioplasty implant and graft; Z87.891 Personal history of nicotine dependence; Z79.899 Other long term (current) drug therapy
CPT/HCPCS: 43239; 45385; J7120

== ENCOUNTER 2020-12-23 08:57 | Outpatient (CLI) | payer OTHER ==
[2020-12-23 09:12] LABS: BASOPHILS % (AUTO) 0.5 %; EOSINOPHILS # (AUTO) 0.7 10^3/uL (0.0-0.7); EOSINOPHILS % (AUTO) 8.8 %; HCT - HEMATOCRIT 46.2 % (42.0-52.0); HGB - HEMOGLOBIN 15.4 g/dL (14.0-18.0); LYMPHOCYTES # (AUTO) 1.4 10^3/uL (1.5-3.5); LYMPHOCYTES % (AUTO) 17.3 %; MEAN CORPUSCULAR HGB CONC 33.3 g/dL (32.0-36.0); MEAN CORPUSCULAR VOLUME 95.9 fL (80.0-94.0); MEAN PLATELET VOLUME 8.8 fL (7.4-11.4); MONOCYTES # (AUTO) 0.4 10^3/uL (0.0-1.0); MONOCYTES % (AUTO) 5.6 %; NEUTROPHILS # (AUTO) 5.3 10^3/uL (1.5-6.6); NEUTROPHILS % (AUTO) 67.5 %; PLT - PLATELET COUNT 190 10^3/uL (130-450); RED BLOOD COUNT 4.82 10^6/uL (4.70-6.10); RED CELL DISTRIBUTION WIDTH 12.2 % (12.0-15.0); WHITE BLOOD COUNT 7.9 x10^3/uL (4.8-10.8)
[2020-12-23 09:33] LABS: ALBUMIN 4.3 g/dL (3.2-5.5); ALBUMIN/GLOBULIN RATIO 1.3 (1.0-2.2); ALKALINE PHOSPHATASE 129 IU/L (42-121); ALT ALANINE AMINOTRANSFERASE 34 IU/L (10-60); AST ASPARTATE AMINOTRANSFERASE 20 IU/L (10-42); BILIRUBIN,TOTAL 0.6 mg/dL (0.2-1.0); BUN - BLOOD UREA NITROGEN 18 mg/dL (6-20); CALCIUM 9.3 mg/dL (8.5-10.3); CARBON DIOXIDE - CO2 24 mmol/L (21-32); CHLORIDE 104 mmol/L (101-111); CHOL/HDL RATIO 2.7 (<5.0); CHOLESTEROL 116 mg/dL; CK- CREATINE KINASE 47 IU/L (22-269); CREATININE 0.8 mg/dL (0.6-1.2); GFR - MDRD 94 (>89); GLUCOSE 100 mg/dL (70-100); HDL CHOLESTEROL 43 mg/dL; LDL CHOLESTEROL,CALCULATED 52 mg/dL; LDL/HDL RATIO 1.2 (<3.6); POTASSIUM 3.8 mmol/L (3.5-5.0); SODIUM 139 mmol/L (135-145); TOTAL PROTEIN 7.7 g/dL (6.7-8.2); TRIGLYCERIDES 103 mg/dL; VLDL CHOLESTEROL 21 mg/dL
[2020-12-25 12:02] LABS: HEPATITIS C ANTIBODY NON-REACTIVE (NON-REACTIVE)
== END 2020-12-23 08:58 | disposition home or self-care (01) ==
LOC: LAB 08:57
PROVIDERS: ATTEND Internal Medicine
DX: Z11.59 Encounter for screening for other viral diseases (principal)
CPT/HCPCS: 36415; 80053; 80061; 82550; 83721; 84443; 85025; 86803

== ENCOUNTER 2021-03-25 09:35 | Outpatient (CLI) | payer OTHER | END 2021-03-25 09:36 | disposition EMS.NT | LOC: EMS 09:35 | DX: R53.1 Weakness (principal) ==

== ENCOUNTER 2021-05-08 08:45 | Outpatient (CLI) | payer OTHER | END 2021-05-08 08:46 | disposition EMS.NT | LOC: EMS 08:45 | DX: Z03.89 Encounter for observation for other suspected diseases and conditions ruled out (principal) ==

== ENCOUNTER 2021-06-02 19:22 | Outpatient (CLI) | payer OTHER | END 2021-06-02 19:23 | disposition critical access hospital (66) | LOC: EMS 19:22 | DX: R40.1 Stupor (principal); R11.10 Vomiting, unspecified; R15.9 Full incontinence of feces; R61 Generalized hyperhidrosis; R00.1 Bradycardia, unspecified | CPT/HCPCS: A0425; A0429 ==

== ENCOUNTER 2021-06-02 19:31 | Emergency (ER) | payer OTHER ==
[2021-06-02] MEDS ORDERED: SODIUM CHLORIDE 0.9% 1,000 ML IV STA (19:44)
[2021-06-02] MEDS ORDERED: METOCLOPRAMIDE 10 MG/2 ML VIAL IVP STA (19:44)
--- NOTE | 2021-06-02 19:46 | ED Physician Documentation ---
PD HPI FOCAL NEURO - Stated complaint Stated Complaint: AMS - Chief complaint Chief Complaint: Neuro - History obtained from History obtained from: Patient, EMS - Additional information Additional information: History is limited on official initial evaluation because of retching and vomiting. He became acutely sick tonight with vomiting and diarrhea. He denies headache or abdominal pain. No sick contacts or fevers. 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 He is able to tell me he does not have a headache or abdominal pain. Reported to be altered for paramedics but this seems to be resolved now. Review of Systems Unable to obtain: Uncooperative (Retching is making complete history taking difficult) PD PAST MEDICAL HISTORY - Past Medical History Cardiovascular: Hypertension, High cholesterol, Coronary artery disease, Other (Stent placement. 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) Endocrine/Autoimmune: None GI: GERD : None Psych: None Musculoskeletal: Other Derm: None - Past Surgical History Past Surgical History: Yes Ortho: Other Cardiovascular: Coronary stent HEENT: Other - Present Medications Home Medications: Ambulatory Orders Medication Instructions Recorded Confirmed Isosorbide Mononitrate [Isosorbide 30 mg PO DAILY 02/10/19 06/02/21 Mononitrate ER] Loratadine [Allergy] 10 mg PO DAILY 02/10/19 06/02/21 Losartan Potassium 100 mg PO DAILY 02/10/19 06/02/21 Nitroglycerin [Nitrostat] 0.4 mg PO [id number] PRN 02/10/19 06/02/21 Simvastatin 40 mg PO QPM 02/10/19 06/02/21 Tamsulosin HCl [Flomax] 0.4 mg PO QPM 02/10/19 06/02/21 Verapamil HCl [Verapamil ER] 180 mg PO DAILY 02/10/19 10/19/19 bisacodyL [Dulcolax] 5 mg PO DAILY PRN 02/10/19 06/02/21 Metoprolol Tartrate 100 mg PO BID 10/19/19 06/02/21 Pantoprazole Sodium 40 mg PO BID #60 10/20/19 06/02/21 Loperamide [Imodium] 2 mg PO QID PRN #20 tab 06/02/21 Ondansetron Odt [Zofran] 4 mg TL Q6H PRN #10 tablet 06/02/21 - Allergies Allergies/Adverse Reactions: Allergies Allergy/AdvReac Type Severity Reaction Status Date / Time No Known Drug Allergies Allergy Verified 06/02/21 19:31 - Social History Does the pt smoke?: No Smoking Status: Former smoker Does the pt drink ETOH?: No Does the pt have substance abuse?: No - Immunizations Immunizations are current?: Yes - POLST Patient has POLST: No PD ED PE NORMAL - Vitals Vital signs reviewed: Yes - General General: Alert and oriented X 3, Other (Retching and active vomiting) - HEENT HEENT: PERRL, EOMI, Other (Well-healed right-sided craniotomy) - Neck Neck: Supple, no meningeal sign, No bony TTP - Cardiac Cardiac: RRR, No murmur - Respiratory Respiratory: No respiratory distress, Clear bilaterally - Abdomen Abdomen: Normal bowel sounds, Soft, Non tender - Derm Derm: Normal color, Warm and dry - Extremities Extremities: No edema, No calf tenderness / cord - Neuro Neuro: Alert and oriented X 3, Normal speech, Other (Contracture left upper extremity, chronic) Eye Opening: Spontaneous Motor: Obeys Commands Verbal: Oriented GCS Score: 15 Results - Vitals Vitals: Vital Signs - 24 hr 06/02/21 06/02/21 06/02/21 19:31 20:03 20:30 Temperature 36.0 C L Heart Rate 49 L 50 L 53 L Respiratory 10 L 16 14 Rate Blood Pressure 160/81 H 138/72 H 131/99 H O2 Saturation 97 100 98 06/02/21 06/02/21 06/02/21 21:00 21:30 22:05 Temperature Heart Rate 51 L 53 L 54 L Respiratory 15 13 17 Rate Blood Pressure 133/88 H 125/67 133/69 H O2 Saturation 98 97 98 06/02/21 06/02/21 06/02/21 22:30 23:00 23:30 Temperature Heart Rate 51 L 54 L 52 L Respiratory 12 15 15 Rate Blood Pressure 140/71 H 133/64 H 123/66 O2 Saturation 98 97 98 06/03/21 00:00 Temperature 36.2 C L Heart Rate 54 L Respiratory 15 Rate Blood Pressure 121/62 O2 Saturation 98 Oxygen O2 Source Room air - EKG (time done) 1951 Rate: Rate (enter#) (49) Rhythm: Sinus bradycardia [place]: Normal Intervals: Normal [place] QRS: Normal Ischemia: Normal ST segments - Labs Labs: Laboratory Tests 06/02/21 06/02/21 19:40 19:40 WBC 9.2 RBC 4.60 L Hgb 14.7 Hct 43.6 MCV 94.8 H MCH 32.0 H MCHC 33.7 RDW 12.8 Plt Count 159 MPV 8.7 Neut # (Auto) 6.5 Lymph # (Auto) 1.4 L [place] # (Auto) 0.6 Eos # (Auto) 0.7 Baso # (Auto) 0.1 Absolute Nucleated RBC 0.00 Nucleated RBC % 0.0 Sodium 136 Potassium 3.1 L Chloride 101 Carbon Dioxide 26 Anion Gap 9.0 BUN 18 Creatinine 1.0 Estimated GFR (MDRD) 73 L Glucose 117 H Calcium 8.7 Total Bilirubin 0.8 AST 22 ALT 31 Alkaline Phosphatase 131 H Total Protein 7.3 Albumin 4.1 Globulin 3.2 Albumin/Globulin Ratio 1.3 PD MEDICAL DECISION MAKING - ED course Complexity details: d/w family ( by phone x2) ED course: 75yo male with very acute vomiting and diarrhea. Benign abd exam. Labs generally unremarkable except potassium, repleted PO. CT Head done given prominent vomiting in setting of prior intracranial surgery and [employer] shunt without e/o mass lesion/hydrocephalus/increased ICP to cause vomiting. Given IV fluids and antiemetics. Still pending PO challenge at end of shift and signed out to Dr Winn pending reeval. Departure - Departure Disposition: 01 Home, Self Care Clinical Impression: Nausea & vomiting, Diarrhea, Hypokalemia Condition: Stable Instructions: ED Potassium Deficiency, ED Nausea Vomiting Prescriptions: Loperamide [Imodium] 2 mg PO QID PRN #20 tab PRN Reason: diarrhea Ondansetron Odt [Zofran] 4 mg TL Q6H PRN #10 tablet PRN Reason: Nausea / Vomiting Comments: You were evaluated for nausea, vomiting and diarrhea. Your symptoms have improved with medication. I have sent prescriptions for antinausea and antidiarrheal medications to the [facility] in [place]. Your potassium was low and you were given a potassium pill tonight. You should have follow-up with your primary care doctor. If your symptoms do not improve with the medications you have received or if you develop any new symptoms please return to the emergency department. Discharge Date/Time: 06/03/21 00:00
[2021-06-02 19:49] LABS: BASOPHILS # (AUTO) 0.1 10^3/uL (0.0-0.1); BASOPHILS % (AUTO) 0.5 %; EOSINOPHILS # (AUTO) 0.7 10^3/uL (0.0-0.7); EOSINOPHILS % (AUTO) 7.2 %; HCT - HEMATOCRIT 43.6 % (42.0-52.0); HGB - HEMOGLOBIN 14.7 g/dL (14.0-18.0); LYMPHOCYTES # (AUTO) 1.4 10^3/uL (1.5-3.5); LYMPHOCYTES % (AUTO) 14.9 %; MEAN CORPUSCULAR HGB CONC 33.7 g/dL (32.0-36.0); MEAN CORPUSCULAR VOLUME 94.8 fL (80.0-94.0); MEAN PLATELET VOLUME 8.7 fL (7.4-11.4); MONOCYTES # (AUTO) 0.6 10^3/uL (0.0-1.0); MONOCYTES % (AUTO) 6.3 %; NEUTROPHILS # (AUTO) 6.5 10^3/uL (1.5-6.6); NEUTROPHILS % (AUTO) 70.7 %; PLT - PLATELET COUNT 159 10^3/uL (130-450); RED CELL DISTRIBUTION WIDTH 12.8 % (12.0-15.0); WHITE BLOOD COUNT 9.2 x10^3/uL (4.8-10.8)
[2021-06-02] MEDS ORDERED: LOPERAMIDE 2 MG CAPSULE PO STA (20:28)
[2021-06-02 20:29] LABS: ALBUMIN 4.1 g/dL (3.2-5.5); ALBUMIN/GLOBULIN RATIO 1.3 (1.0-2.2); BILIRUBIN,TOTAL 0.8 mg/dL (0.2-1.0); TOTAL PROTEIN 7.3 g/dL (6.7-8.2)
[2021-06-02 20:35] LABS: CALCIUM 8.7 mg/dL (8.5-10.3); POTASSIUM 3.1 mmol/L (3.5-5.0)
--- NOTE | 2021-06-02 21:35 | CT Report ---
PROCEDURE: HEAD WO INDICATIONS: Acute altered mental status. TECHNIQUE: Noncontrast 4.5 mm thick angled axial sections acquired from the foramen magnum to the vertex. For r adiation dose reduction, the following was used: automated exposure control, adjustment of mA and/or kV according to patient size. COMPARISON: None FINDINGS: Image quality: Excellent. CSF spaces: Basal cisterns are patent. No extra-axial fluid collections. The ventricles are symmet emory in size and shape. Interventricular shunt catheter projects into the right lateral ventricle via right frontal approach Brain: Post surgical changes compatible prior cerebral aneurysm clipping. Small chronic bilateral ba zach ganglia lacunar infarcts. Small chronic left cerebellar hemisphere lacunar infarct. No intracrani al bleeds or masses. There is cerebral volume loss for age, with resultant ventricular and sulcal pr ominence. There are periventricular and deep white matter chronic small vessel ischemic changes. Th ere is intracranial internal carotid artery and vertebral artery atherosclerosis. Skull and face: Status post prior right frontal-temporal craniotomy. The visualized facial bones appe ar intact, without suspicious lesions. Sinuses: Visualized sinuses and mastoids are clear. IMPRESSION: No acute intracranial disease process. Reviewed by: Sultana Gutierrez MD, PhD on 06/02/2021 9:34 PM PDT Approved by: Sultana Gutierrez MD, PhD on 06/02/2021 9:34 PM PDT Station ID: [id number]
[2021-06-02] MEDS ORDERED: ONDANSETRON 4 MG/2 ML VIAL IVP STA (21:55)
[2021-06-02] MEDS ORDERED: POTASSIUM CHLORIDE 20 MEQ TABLET PO STA (21:56)
--- NOTE | 2021-06-02 23:37 | ED Physician Documentation ---
ED Addendum - Addendum Addendum: 06/02/21 23:34 Patient signed out to me by Dr. Dunbar pending reevaluation. Patient is feeling improved and is able to tolerate p.o. He is wanting to go home. He was able to take p.o. potassium replacement.Patient normally ambulates with a walker but states that his helps him as he has contracture to his left arm. I will prescribe antiemetics and antidiarrheal medications and send these to his pharmacy. Departure - Departure Disposition: Home, Self Care Clinical Impression: Hypokalemia Nausea & vomiting Qualifiers: Vomiting type: unspecified Qualified Code(s): R11.2 - Nausea with vomiting, unspecified Diarrhea Qualifiers: Diarrhea type: unspecified type Qualified Code(s): R19.7 - Diarrhea, unspecified Condition: Stable Instructions: ED Nausea Vomiting, ED Potassium Deficiency Prescriptions: Loperamide [Imodium] 2 mg PO QID PRN #20 tab PRN Reason: diarrhea Ondansetron Odt [Zofran] 4 mg TL Q6H PRN #10 tablet PRN Reason: Nausea / Vomiting Comments: You were evaluated for nausea, vomiting and diarrhea. Your symptoms have improved with medication. I have sent prescriptions for antinausea and antidiarrheal medications to the [facility] in [place]. Your potassium was low and you were given a potassium pill tonight. You should have follow-up with your primary care doctor. If your symptoms do not improve with the medications you have received or if you develop any new symptoms please return to the emergency department.
[2021-06-03 00:02] VITALS: BP 121/62
== END 2021-06-03 | disposition home or self-care (01) ==
LOC: ED 19:31
DX: R11.2 Nausea with vomiting, unspecified (principal); R19.7 Diarrhea, unspecified; E87.6 Hypokalemia; Z87.891 Personal history of nicotine dependence
CPT/HCPCS: 36415; 70450; 80053; 85025; 93005; 96361; 96374; 96375; 99283; 99284; A9270; J2765

== ENCOUNTER 2021-07-08 10:32 | Outpatient (CLI) | payer MEDICARE ==
--- NOTE | 2021-07-09 09:11 | Ultrasound Report ---
PROCEDURE: Retroperitoneal INDICATIONS: RENAL MASS TECHNIQUE: Real-time scanning was performed of the right kidney, with image documentation. COMPARISON: CT abdomen pelvis 10/19/[address] abdomen 02/12/2020 FINDINGS: Kidneys: Right kidney measures 11.2 cm long. Right renal cortical thickness is 1.0 cm. Round, partially exophytic renal mass in the cortical medullary region of the right mid pole extendin g to one of the interpolar calyces measures 3.9 x 3.2 x 4.1 cm. There are peripheral echogenic reflec tors along the medial side, potentially calcification. Color Doppler demonstrates no significant inte rnal vascularity. There is a simple cyst arising from the superior pole measuring 1.9 cm. The left kidney measures 11.6 cm in length and the cortical thickness is 1.4 cm. There are a few subc entimeter cortical based cysts. No solid mass or hydronephrosis. Bladder: Pre-void bladder volume is 70 mL. The patient was unable to void. Pre-void images demonstra te no intraluminal masses or stones. Bilateral ureteral jets are visible. The prostate gland is irre gular measuring 5.1 x 3.5 x 4.3 cm for a volume of 40 cc. Miscellaneous: No free abdominal fluid. IMPRESSION: 1. Exophytic right renal mass measuring up to 4.1 cm, decreased in size slightly compared to the prio r study where it measured up to 4.6 cm. Decreased size and lack of intrinsic vascularity suggest a mo re indolent process. Differential diagnosis continues to include both benign and malignant renal lesi ons. 2. Simple bilateral renal cysts. 3. Irregular, relatively normal size prostate gland. Reviewed by: Nicole Mcfarlane MD on 07/09/2021 9:09 AM PDT Approved by: Nicole Mcfarlane MD on 07/09/2021 9:09 AM PDT Station ID: [id number]
== END 2021-07-08 10:33 | disposition home or self-care (01) ==
LOC: DI 10:32
PROVIDERS: ATTEND Physician Assistant Medical
DX: N28.89 Other specified disorders of kidney and ureter (principal); N28.1 Cyst of kidney, acquired

== ENCOUNTER 2021-12-17 14:43 | Outpatient (CLI) | payer MEDICARE ==
--- NOTE | 2021-12-17 17:15 | Ultrasound Report ---
PROCEDURE: Retroperitoneal INDICATIONS: RENAL MASS TECHNIQUE: Real-time scanning was performed of the retroperitoneal organs, with image documentation. COMPARISON: Renal ultrasound 07/08/2021, CT multiphasic abdomen 02/12/2020. FINDINGS: Kidneys: Kidneys are normal in size. Right kidney measures 10.4 cm long; left kidney measures 10.9 cm long. Right renal cortical thickness is 0.9 cm; left renal cortical thickness is 1.4 cm. No hydr onephrosis or nephrolithiasis. Redemonstrated partially exophytic cystic and solid-appearing mass arising from the right mid kidney. This measures 4.6 x 4.0 x 3.9 cm, previously 3.9 x 3.2 x 4.1 cm on prior ultrasound. No convincing i nternal vascularity on Doppler images. A few simple appearing renal cortical cysts are present as before. Bladder: Pre-void bladder volume is 58 mL. Patient could not void for postvoid images. On pre-void i mages, both ureteral jets are noted with color Doppler interrogation. (Of note, ureteral jets may no t be detectable in up to 25% of cases due to insufficient differences in specific gravity between ure teral and bladder urine). A solid appearing rounded structure is measured on images of the urinary b ladder, adjacent to the prostate gland, near the region of the right ureterovesical junction. This nolasco s approximate dimensions of 1.7 x 1.4 x 2.0 cm. Internal vascularity is present in this area on Doppl er images. IMPRESSION: 1. Previously demonstrated cystic and solid appearing mass exophytic from the right mid kidney measur es slightly larger than on the prior ultrasound. Given the absence of definite enhancement on prior m ultiphasic CT and absence of definite/substantial internal vascularity on prior and current renal ult rasound, this could represent a cyst containing avascular material such as blood clot. Other etiologi es including neoplasm are difficult to definitively exclude. Continued imaging follow-up could be per formed as clinically indicated. 2. Possible bladder mass in the region of the right ureterovesical junction. Proximity to the prostat e gland raises the possibility of a prominent median lobe of the prostate gland, however that finding is typically midline rather than lateral/adjacent to one of the ureterovesical junctions. Cystoscopy may be helpful for further evaluation. Reviewed by: Cedric Vora MD on 12/17/2021 5:14 PM PDT Approved by: Cedric Vora MD on 12/17/2021 5:14 PM PDT Station ID: [id number]
== END 2021-12-17 14:44 | disposition home or self-care (01) ==
LOC: DI 14:43
PROVIDERS: ATTEND Physician Assistant Medical
DX: N28.89 Other specified disorders of kidney and ureter (principal)

== ENCOUNTER 2021-12-24 12:20 | Outpatient (CLI) | payer MEDICARE ==
[2021-12-24] MEDS ORDERED: iohexoL-300 100 ML VIAL ONE (13:56)
[2021-12-24] MEDS ORDERED: iohexoL-300 100 ML VIAL IVP ONE (14:15)
--- NOTE | 2021-12-24 16:32 | CT Report ---
PROCEDURE: IVP INDICATIONS: BLADDER MASS CONTRAST: TECHNIQUE: After the administration of oral and intravenous contrast, 5 mm thick sections acquired from the diap hragms to the symphysis. 5 mm thick coronal and sagittal reformats were acquired. For radiation dos e reduction, the following was used: automated exposure control, adjustment of mA and/or kV accordin g to patient size. COMPARISON: None. FINDINGS: Image quality: Excellent. Lung bases: Lung bases are clear. Heart size is normal. Urinary system: An exophytic renal mass is redemonstrated off the midpole of the right kidney which measures 4.4 x 3.4 cm in the axial plane. This measured 4.7 x 3.6 cm on the comparison CT dated 2019. There is an enhancing, partially calcified rim. Centrally, this lesion measures 36 Hounsfield u nits on both the pre and postcontrast images. A 1.4 cm hyperdense lesion is noted within the midpole of the right kidney (series 4/image 21). This demonstrates approximately 68 Hounsfield units on both the pre and postcontrast images suggesting a hyperdense cyst. Low-density upper and lower pole cortic al renal cysts are noted in the right kidney. No hydronephrosis or nephrolithiasis. The bilateral michael al collecting systems opacify as expected and demonstrate normal course and caliber without filling d efects. No suspicious enhancing left renal mass lesions. No hydronephrosis or nephrolithiasis or hydr oureter. No ureterolithiasis. Solid organs: Liver and spleen are normal in size and enhancement. The gallbladder is contracted and filled with subcentimeter calcified stones. No gallbladder wall thickening or pericholecystic fluid. Biliary system is non dilated. Pancreas enhances normally. No adrenal nodules. Peritoneum and bowel: Bowel loops demonstrate normal wall thickness and caliber. A peritoneal cathet er is visualized coiled within the right lower quadrant. No free fluid or air. Nodes and vessels: No retroperitoneal or mesenteric adenopathy by size criteria. Aorta and inferior vena cava are normal in size. There are dense there are extensive sigmoid colon diverticular outpou chings. No mucosal thickening or pericolonic fat stranding to suggest acute diverticulitis. Atheromat ous calcifications throughout the abdominal aorta. Abdominal wall: No ventral hernias. Pelvis: No pathologic free pelvic fluid. No inguinal hernias or adenopathy. Bones: No suspicious bony lesions. No new vertebral body compression fractures. IMPRESSION: 1. Right renal mass with rim enhancement which is slightly decreased in size when compared with the C T dated 10/19/2019. This finding may represent a complex renal cyst with internal proteinaceous conten ts. However, indolent neoplasm cannot be excluded and continued surveillance recommended. This can li parker be accomplished by ultrasound. 2. Right hyperdense cyst. 3. No hydronephrosis, nephrolithiasis, hydroureter, or ureterolithiasis. 4. Extensive sigmoid colon diverticulosis. No acute diverticulitis. 5. Cholelithiasis. No findings to suggest choledocholithiasis or acute cholecystitis. Reviewed by: Janie Andujar MD on 12/24/2021 4:30 PM PDT Approved by: Janie Andujar MD on 12/24/2021 4:30 PM PDT Station ID: [id number]
== END 2021-12-24 12:21 | disposition home or self-care (01) ==
LOC: LAB 12:20
PROVIDERS: ATTEND Physician Assistant Medical
DX: N28.89 Other specified disorders of kidney and ureter (principal)
CPT/HCPCS: 36415; 74178; 82565; 84520; Q9967

== ENCOUNTER 2022-01-05 12:11 | Outpatient (CLI) | payer MEDICARE | END 2022-01-05 12:12 | disposition home or self-care (01) | LOC: LAB 12:11 | PROVIDERS: ATTEND Physician Assistant Medical | DX: Z12.5 Encounter for screening for malignant neoplasm of prostate (principal) | CPT/HCPCS: 36415; G0103; 84153 ==

== ENCOUNTER 2022-02-01 10:55 | Outpatient (CLI) | payer MEDICARE ==
[2022-02-01 11:27] LABS: BASOPHILS # (AUTO) 0.1 10^3/uL (0.0-0.1); BASOPHILS % (AUTO) 0.6 %; EOSINOPHILS # (AUTO) 0.8 10^3/uL (0.0-0.7); EOSINOPHILS % (AUTO) 10.3 %; HCT - HEMATOCRIT 44.5 % (42.0-52.0); HGB - HEMOGLOBIN 14.9 g/dL (14.0-18.0); LYMPHOCYTES # (AUTO) 1.8 10^3/uL (1.5-3.5); MEAN CORPUSCULAR HEMOGLOBIN 31.8 pg (27.0-31.0); MEAN CORPUSCULAR HGB CONC 33.5 g/dL (32.0-36.0); MEAN CORPUSCULAR VOLUME 95.1 fL (80.0-94.0); MEAN PLATELET VOLUME 8.2 fL (7.4-11.4); MONOCYTES # (AUTO) 0.5 10^3/uL (0.0-1.0); MONOCYTES % (AUTO) 6.9 %; NEUTROPHILS # (AUTO) 4.6 10^3/uL (1.5-6.6); NEUTROPHILS % (AUTO) 58.9 %; PLT - PLATELET COUNT 233 10^3/uL (130-450); RED BLOOD COUNT 4.68 10^6/uL (4.70-6.10); RED CELL DISTRIBUTION WIDTH 12.4 % (12.0-15.0); WHITE BLOOD COUNT 7.8 x10^3/uL (4.8-10.8)
[2022-02-01 11:45] LABS: BUN - BLOOD UREA NITROGEN 26 mg/dL (6-20); CALCIUM 9.2 mg/dL (8.5-10.3); CARBON DIOXIDE - CO2 25 mmol/L (21-32); CHLORIDE 104 mmol/L (101-111); CHOL/HDL RATIO 2.6 (<5.0); CHOLESTEROL 146 mg/dL; CREATININE 1.1 mg/dL (0.6-1.2); GFR - MDRD 65 (>89); GLUCOSE 93 mg/dL (70-100); HDL CHOLESTEROL 57 mg/dL; LDL CHOLESTEROL,CALCULATED 75 mg/dL; LDL/HDL RATIO 1.3 (<3.6); SODIUM 138 mmol/L (135-145); TRIGLYCERIDES 70 mg/dL; VLDL CHOLESTEROL 14 mg/dL
== END 2022-02-01 10:56 | disposition home or self-care (01) ==
LOC: LAB 10:55
PROVIDERS: ATTEND Physician Assistant Medical
DX: I25.10 Atherosclerotic heart disease of native coronary artery without angina pectoris (principal); Z12.5 Encounter for screening for malignant neoplasm of prostate
CPT/HCPCS: 36415; 80048; 80061; 85025; G0103; 83721; 84153

== ENCOUNTER 2022-03-17 12:01 | Outpatient (CLI) | payer MEDICARE ==
[2022-03-17 12:16] LABS: BASOPHILS % (AUTO) 0.3 %; EOSINOPHILS # (AUTO) 0.2 10^3/uL (0.0-0.7); EOSINOPHILS % (AUTO) 1.9 %; HCT - HEMATOCRIT 48.3 % (42.0-52.0); HGB - HEMOGLOBIN 16.1 g/dL (14.0-18.0); LYMPHOCYTES # (AUTO) 1.7 10^3/uL (1.5-3.5); LYMPHOCYTES % (AUTO) 14.2 %; MEAN CORPUSCULAR HEMOGLOBIN 31.3 pg (27.0-31.0); MEAN CORPUSCULAR HGB CONC 33.3 g/dL (32.0-36.0); MEAN CORPUSCULAR VOLUME 93.8 fL (80.0-94.0); MEAN PLATELET VOLUME 8.5 fL (7.4-11.4); MONOCYTES # (AUTO) 0.9 10^3/uL (0.0-1.0); MONOCYTES % (AUTO) 7.9 %; NEUTROPHILS # (AUTO) 8.9 10^3/uL (1.5-6.6); NEUTROPHILS % (AUTO) 75.3 %; PLT - PLATELET COUNT 237 10^3/uL (130-450); RED BLOOD COUNT 5.15 10^6/uL (4.70-6.10); RED CELL DISTRIBUTION WIDTH 12.2 % (12.0-15.0); WHITE BLOOD COUNT 11.8 x10^3/uL (4.8-10.8)
[2022-03-17 12:24] LABS: CALCIUM 9.4 mg/dL (8.5-10.3); CREATININE 1.2 mg/dL (0.6-1.2); POTASSIUM 3.4 mmol/L (3.5-5.0)
== END 2022-03-17 12:02 | disposition home or self-care (01) ==
LOC: LAB 12:01
PROVIDERS: ATTEND Internal Medicine
DX: K92.0 Hematemesis (principal); Z79.899 Other long term (current) drug therapy
CPT/HCPCS: 36415; 80048; 85025

== ENCOUNTER 2022-05-10 12:22 | Outpatient (CLI) | payer MEDICARE ==
[2022-05-10 12:36] LABS: BASOPHILS # (AUTO) 0.1 10^3/uL (0.0-0.1); BASOPHILS % (AUTO) 0.6 %; EOSINOPHILS # (AUTO) 0.7 10^3/uL (0.0-0.7); EOSINOPHILS % (AUTO) 8.3 %; HCT - HEMATOCRIT 43.5 % (42.0-52.0); HGB - HEMOGLOBIN 14.2 g/dL (14.0-18.0); LYMPHOCYTES # (AUTO) 1.5 10^3/uL (1.5-3.5); LYMPHOCYTES % (AUTO) 17.2 %; MEAN CORPUSCULAR HEMOGLOBIN 31.9 pg (27.0-31.0); MEAN CORPUSCULAR HGB CONC 32.6 g/dL (32.0-36.0); MEAN CORPUSCULAR VOLUME 97.8 fL (80.0-94.0); MONOCYTES # (AUTO) 0.5 10^3/uL (0.0-1.0); MONOCYTES % (AUTO) 5.6 %; NEUTROPHILS # (AUTO) 5.8 10^3/uL (1.5-6.6); NEUTROPHILS % (AUTO) 68.1 %; PLT - PLATELET COUNT 176 10^3/uL (130-450); RED BLOOD COUNT 4.45 10^6/uL (4.70-6.10); RED CELL DISTRIBUTION WIDTH 12.8 % (12.0-15.0); WHITE BLOOD COUNT 8.5 x10^3/uL (4.8-10.8)
[2022-05-10 12:51] LABS: BUN - BLOOD UREA NITROGEN 26 mg/dL (6-20); CALCIUM 9.5 mg/dL (8.5-10.3); CARBON DIOXIDE - CO2 25 mmol/L (21-32); CHLORIDE 109 mmol/L (101-111); CHOL/HDL RATIO 2.5 (<5.0); CHOLESTEROL 124 mg/dL; GFR - MDRD 73 (>89); GLUCOSE 89 mg/dL (70-100); HDL CHOLESTEROL 49 mg/dL; LDL CHOLESTEROL,CALCULATED 65 mg/dL; LDL/HDL RATIO 1.3 (<3.6); POTASSIUM 4.2 mmol/L (3.5-5.0); SODIUM 144 mmol/L (135-145); TRIGLYCERIDES 52 mg/dL; VLDL CHOLESTEROL 10 mg/dL
== END 2022-05-10 12:23 | disposition home or self-care (01) ==
LOC: LAB 12:22
PROVIDERS: ATTEND Internal Medicine Cardiovascular Disease
DX: I25.10 Atherosclerotic heart disease of native coronary artery without angina pectoris (principal); E78.5 Hyperlipidemia, unspecified
CPT/HCPCS: 36415; 80048; 80061; 83721; 85025

== ENCOUNTER 2022-07-15 16:58 | Outpatient (CLI) | payer MEDICARE ==
--- NOTE | 2022-07-16 09:19 | Ultrasound Report ---
PROCEDURE: Retroperitoneal INDICATIONS: RENAL MASS TECHNIQUE: Real-time scanning was performed of the retroperitoneal organs, with image documentation. COMPARISON: None. FINDINGS: Kidneys: Kidneys are normal in size. Increased cortical echogenicity. Right kidney measures 11.4 cm long; left kidney measures 1.5 cm long. Right renal cortical thickness is 10 cm; left renal cortical thickness is 1.2 cm. Solid, exophytic mass along the periphery of the right kidney measures 3.9 x 3. 3 x 3.8 cm, previously 4.6 x 4.0 x 3.9 cm. Bilateral simple renal cysts are grossly unchanged. Bladder: Pre-void bladder volume is 188 mL. Post-void residual is 169 mL. Pre-void images demonstr ate no intraluminal masses or stones. On pre-void images, right ureteral jets are noted with color D oppler interrogation. (Of note, ureteral jets may not be detectable in up to 25% of cases due to ins ufficient differences in specific gravity between ureteral and bladder urine). Miscellaneous: No free abdominal fluid. IMPRESSION: Complex mass along the lateral margin of the right kidney has decreased in size, measuring 3.9 x 3.3 x 3.8 cm, previously 4.6 x 4.0 x 3.9 cm. Differential favors a complex cyst with degenerating feature s, less likely solid mass given lack of interval growth. Continued surveillance is recommended. Reviewed by: Paul Preston on 07/16/2022 9:17 AM PDT Approved by: Paul Preston on 07/16/2022 9:17 AM PDT Station ID: [id number]
== END 2022-07-15 16:59 | disposition home or self-care (01) ==
LOC: DI 16:58
PROVIDERS: ATTEND Physician Assistant Medical
DX: N28.89 Other specified disorders of kidney and ureter (principal)

== ENCOUNTER 2022-07-16 11:10 | Outpatient (CLI) | payer MEDICARE ==
[2022-07-16 11:28] LABS: BASOPHILS % (AUTO) 0.5 %; EOSINOPHILS # (AUTO) 0.8 10^3/uL (0.0-0.7); LYMPHOCYTES # (AUTO) 1.5 10^3/uL (1.5-3.5); LYMPHOCYTES % (AUTO) 19.8 %; MEAN CORPUSCULAR HEMOGLOBIN 31.7 pg (27.0-31.0); MEAN CORPUSCULAR HGB CONC 33.3 g/dL (32.0-36.0); MEAN CORPUSCULAR VOLUME 95.1 fL (80.0-94.0); MEAN PLATELET VOLUME 8.5 fL (7.4-11.4); MONOCYTES # (AUTO) 0.5 10^3/uL (0.0-1.0); MONOCYTES % (AUTO) 6.9 %; NEUTROPHILS # (AUTO) 4.8 10^3/uL (1.5-6.6); NEUTROPHILS % (AUTO) 62.4 %; PLT - PLATELET COUNT 170 10^3/uL (130-450); RED BLOOD COUNT 4.73 10^6/uL (4.70-6.10); RED CELL DISTRIBUTION WIDTH 12.5 % (12.0-15.0); WHITE BLOOD COUNT 7.7 x10^3/uL (4.8-10.8)
[2022-07-16 11:46] LABS: ALBUMIN/GLOBULIN RATIO 1.2 (1.0-2.2); ALKALINE PHOSPHATASE 119 IU/L (42-121); ALT ALANINE AMINOTRANSFERASE 23 IU/L (10-60); AST ASPARTATE AMINOTRANSFERASE 19 IU/L (10-42); BILIRUBIN,TOTAL 0.6 mg/dL (0.2-1.0); BUN - BLOOD UREA NITROGEN 21 mg/dL (6-20); CALCIUM 8.9 mg/dL (8.5-10.3); CARBON DIOXIDE - CO2 26 mmol/L (21-32); CHLORIDE 106 mmol/L (101-111); CHOLESTEROL 136 mg/dL; CREATININE 0.9 mg/dL (0.6-1.2); GFR - MDRD 82 (>89); GLUCOSE 94 mg/dL (70-100); HDL CHOLESTEROL 45 mg/dL; LDL CHOLESTEROL,CALCULATED 73 mg/dL; LDL/HDL RATIO 1.6 (<3.6); POTASSIUM 4.2 mmol/L (3.5-5.0); SODIUM 141 mmol/L (135-145); TOTAL PROTEIN 7.3 g/dL (6.7-8.2); TRIGLYCERIDES 90 mg/dL; VLDL CHOLESTEROL 18 mg/dL
== END 2022-07-16 11:11 | disposition home or self-care (01) ==
LOC: LAB 11:10
PROVIDERS: ATTEND Internal Medicine
DX: Z00.00 Encounter for general adult medical examination without abnormal findings (principal); I63.9 Cerebral infarction, unspecified; I25.10 Atherosclerotic heart disease of native coronary artery without angina pectoris; H91.90 Unspecified hearing loss, unspecified ear; I10 Essential (primary) hypertension; G47.00 Insomnia, unspecified; Z79.899 Other long term (current) drug therapy
CPT/HCPCS: 36415; 80053; 80061; 83721; 84443; 85025

== ENCOUNTER 2023-02-13 05:42 | Outpatient (CLI) | payer OTHER | END 2023-02-13 05:43 | disposition critical access hospital (66) | LOC: EMS 05:42 | DX: R11.2 Nausea with vomiting, unspecified (principal); R19.7 Diarrhea, unspecified; R68.83 Chills (without fever); R53.1 Weakness; R53.83 Other fatigue | CPT/HCPCS: A0425; A0429 ==

== ENCOUNTER 2023-02-13 05:46 | Emergency (ER) | payer MEDICARE, OTHER ==
--- NOTE | 2023-02-13 05:45 | ED Physician Documentation ---
PD HPI NVD - Stated complaint Stated Complaint: N/V/D - History obtained from History obtained from: Patient, EMS - Additonal information Additional information: JALEESA. HPI is from EMS as well as from patient. 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 EMS says that they found the patient with both vomitus and diarrhea on him. Patient denies having any pain including abdominal pain. Fingerstick blood sugar by EMS was 133. Patient denies fevers. Review of Systems GI: reports: Nausea, Vomiting, Diarrhea. denies: Abdominal Pain, Constipation, Hematemesis, Bloody / black stool PD PAST MEDICAL HISTORY - Past Medical History Past Medical History: Yes Cardiovascular: Hypertension, High cholesterol Neuro: CVA GI: GERD Other Past Medical History: intracranial abscess - Past Surgical History Past Surgical History: Yes Neuro: Craniotomy, TEST ENGINEER shunt - Present Medications Home Medications: Ambulatory Orders Medication Instructions Recorded Confirmed Isosorbide Mononitrate [Isosorbide 30 mg PO DAILY 02/10/19 06/02/21 Mononitrate ER] Loratadine [Allergy] 10 mg PO DAILY 02/10/19 06/02/21 Losartan Potassium 100 mg PO DAILY 02/10/19 06/02/21 Nitroglycerin [Nitrostat] 0.4 mg PO [id number] PRN 02/10/19 06/02/21 Simvastatin 40 mg PO QPM 02/10/19 06/02/21 Tamsulosin HCl [Flomax] 0.4 mg PO QPM 02/10/19 06/02/21 Verapamil HCl [Verapamil ER] 180 mg PO DAILY 02/10/19 10/19/19 bisacodyL [Dulcolax] 5 mg PO DAILY PRN 02/10/19 06/02/21 Metoprolol Tartrate 100 mg PO BID 10/19/19 06/02/21 Pantoprazole Sodium 40 mg PO BID #60 10/20/19 06/02/21 Loperamide [Imodium] 2 mg PO QID PRN #20 tab 06/02/21 Ondansetron Odt [Zofran] 4 mg TL Q6H PRN #10 tablet 06/02/21 - Allergies Allergies/Adverse Reactions: Allergies Allergy/AdvReac Type Severity Reaction Status Date / Time No Known Drug Allergies Allergy Verified 02/13/23 07:13 PD ED PE NORMAL - Vitals Vital signs reviewed: Yes - General General: Alert and oriented X 3, No acute distress, Well developed/nourished - HEENT HEENT: PERRL, Moist mucous membranes - Cardiac Cardiac: RRR - Respiratory Respiratory: No respiratory distress, Clear bilaterally - Abdomen Abdomen: Soft, Non tender, Non distended - Derm Derm: Normal color, Warm and dry - Extremities Extremities: Other (LUE contracture and atrophy (patient indicates this is chronic and due to previous stroke)) Results - Vitals Vitals: Vital Signs - 24 hr 02/13/23 02/13/23 05:58 07:00 Temperature 36.5 C Heart Rate 63 56 L Respiratory 18 14 Rate Blood Pressure 162/94 H 170/88 H O2 Saturation 98 98 Oxygen O2 Source Room air - Labs Labs: Microbiology 02/13/23 06:15 Occult Blood - Final Stool Laboratory Tests 02/13/23 02/13/23 02/13/23 06:15 06:29 06:29 WBC 10.3 RBC 5.22 Hgb 16.2 Hct 49.9 MCV 95.6 H MCH 31.0 MCHC 32.5 RDW 13.2 Plt Count 215 MPV 8.7 Neut # (Auto) 8.7 H Lymph # (Auto) 0.7 L [place] # (Auto) 0.6 Eos # (Auto) 0.2 Baso # (Auto) 0.0 Absolute Nucleated RBC 0.00 Nucleated RBC % 0.0 Sodium 140 Potassium 3.4 L Chloride 105 Carbon Dioxide 28 Anion Gap 7.0 BUN 47 H Creatinine 1.4 H Estimated GFR (MDRD) 49 L Glucose 69 L Calcium 9.7 Total Bilirubin 0.5 AST 20 ALT 19 Alkaline Phosphatase 116 Total Protein 8.2 Albumin 4.7 Globulin 3.5 Albumin/Globulin Ratio 1.3 Lipase 36 Stl C. diff Tox B Gene NEGATIVE PD Medical Decision Making - ED course Complexity details: considered differential, d/w patient ED course: Patient presents with nausea, vomiting, and diarrhea. He is not in any obvious distress on arrival, denies having any pain, and has a benign abdominal exam. I ordered 1 L normal saline IV, 4 mg Zofran IV, CBC, ER abdominal panel. Stool was sent for guaiac, C. difficile PCR, and [facility] GI PCR. At the end of my shift, patient's test results are pending and thus care of patient is turned over to the oncoming ED physician (Dr. Winn).
[2023-02-13] MEDS ORDERED: SODIUM CHLORIDE 0.9% 1,000 ML IV STA (05:58)
[2023-02-13] MEDS ORDERED: ONDANSETRON 4 MG/2 ML VIAL IVP STA (05:58)
[2023-02-13 07:08] LABS: BASOPHILS % (AUTO) 0.2 %; EOSINOPHILS # (AUTO) 0.2 10^3/uL (0.0-0.7); EOSINOPHILS % (AUTO) 2.3 %; HCT - HEMATOCRIT 49.9 % (42.0-52.0); HGB - HEMOGLOBIN 16.2 g/dL (14.0-18.0); LYMPHOCYTES # (AUTO) 0.7 10^3/uL (1.5-3.5); LYMPHOCYTES % (AUTO) 6.4 %; MEAN CORPUSCULAR HGB CONC 32.5 g/dL (32.0-36.0); MEAN CORPUSCULAR VOLUME 95.6 fL (80.0-94.0); MEAN PLATELET VOLUME 8.7 fL (7.4-11.4); MONOCYTES # (AUTO) 0.6 10^3/uL (0.0-1.0); MONOCYTES % (AUTO) 5.7 %; NEUTROPHILS # (AUTO) 8.7 10^3/uL (1.5-6.6); NEUTROPHILS % (AUTO) 84.8 %; PLT - PLATELET COUNT 215 10^3/uL (130-450); RED BLOOD COUNT 5.22 10^6/uL (4.70-6.10); RED CELL DISTRIBUTION WIDTH 13.2 % (12.0-15.0); WHITE BLOOD COUNT 10.3 x10^3/uL (4.8-10.8)
[2023-02-13 07:12] LABS: ALBUMIN 4.7 g/dL (3.2-5.5); ALBUMIN/GLOBULIN RATIO 1.3 (1.0-2.2); BILIRUBIN,TOTAL 0.5 mg/dL (0.2-1.0); CALCIUM 9.7 mg/dL (8.5-10.3); CREATININE 1.4 mg/dL (0.6-1.3); POTASSIUM 3.4 mmol/L (3.5-4.5); TOTAL PROTEIN 8.2 g/dL (6.4-8.9)
[2023-02-13] MEDS ORDERED: POTASSIUM BICARB 25 MEQ TABLET PO ONE (08:07)
--- NOTE | 2023-02-13 08:07 | ED Physician Documentation ---
ED Addendum - Addendum Addendum: 02/13/23 08:06 Patient signed out to me by Dr. Chapman at shift change. Labs reviewed. Patient has a mild TAMIR. No further diarrhea. 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 Patient reportedly is feeling better and would like some water. On abdominal exam he has no tenderness and was given a glass of water. On further review of the patient's chart he has had a similar presentation last year. He apparently has a LABOR CREW SUPERVISOR shunt in place so we will obtain a CT head to ensure there are no changes attributing to his symptoms today. I reviewed his CT head and there are no significant findings. Patient is tolerating water here as well as potassium replacement. He appears to be at his baseline. Patient counseled on continued supportive care. No further episodes of diarrhea. Departure - Departure Disposition: 01 Home, Self Care Clinical Impression: Nausea vomiting and diarrhea, TAMIR (acute kidney injury), Hypokalemia, LABOR CREW SUPERVISOR (ventriculoperitoneal) shunt status Condition: Stable Instructions: ED Diet Vomiting Diarrhea Prescriptions: Ondansetron Odt [Zofran] 4 mg TL Q6H PRN #10 tablet PRN Reason: Nausea / Vomiting Comments: Your testing today shows that you have some mild dehydration and a slightly low potassium level which was replaced with potassium medication here. We have also given you IV fluids. I have sent a prescription for antinausea medications to [facility] in [place]. Please continue to stay hydrated today. Return to the emergency department with any worsening symptoms. I would also recommend recheck with your primary care provider in the next week to make sure that your kidneys are getting better. Forms: PCP List Discharge Date/Time: 02/13/23 11:43
--- NOTE | 2023-02-13 09:31 | CT Report ---
PROCEDURE: HEAD WO INDICATIONS: vomiting/history of WOOD HACKER shunt TECHNIQUE: Noncontrast 4.5 mm thick angled axial sections acquired from the foramen magnum to the vertex. For r adiation dose reduction, the following was used: automated exposure control, adjustment of mA and/or kV according to patient size. COMPARISON: 06/02/2021 FINDINGS: Image quality: Good CSF spaces: A right WOOD HACKER shunt again seen. Similar, overall mildly dilated lateral ventricles, particul [place] the frontal horns. Similar nondilated configuration of the temporal horns. The third and fourth ventricles appear similar. Basal cisterns are patent. Volume: Vascular calcifications. 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 Volume loss is present. These findings are mild to moderate. Brain: Left cerebellar encephalomalacia again seen. Old basal ganglia infarcts. No acute hemorrhage o r new loss of guo-white differentiation. Aneurysm clips. Craniofacial structures: Right craniotomy changes. IMPRESSION: No acute intracranial changes compared to 06/02/20[address] right ventricular catheter in place, with overall similar appearance of the ventricular configuration. No new hemorrhage. Reviewed by: Mohan Peterson MD on 02/13/2023 9:30 AM PST Approved by: Mohan Peterson MD on 02/13/2023 9:30 AM PST Station ID: [id number]
[2023-02-13 11:48] VITALS: BP 156/83; O2SAT 98
[2023-02-14 04:07] LABS: ADENOVIRUS F 40/41 Not Detected (Not Detected); ASTROVIRUS Not Detected (Not Detected); C DIFFICILE TOXIN A/B Not Detected (Not Detected); CAMPYLOBACTER Not Detected (Not Detected); CRYPTOSPORIDIUM Not Detected (Not Detected); CYCLOSPORA CAYETANENSIS Not Detected (Not Detected); ENTAMOEBA HISTOLYTICA Not Detected (Not Detected); ENTEROAGGREGATIVE E COLI Not Detected (Not Detected); ENTEROPATHOGENIC E COLI Detected (Not Detected); ENTEROTOXIGENIC E COLI Not Detected (Not Detected); GIARDIA LAMBLIA Not Detected (Not Detected); NOROVIRUS GI/GII Detected (Not Detected); PLESIOMONAS SHIGELLOIDES Not Detected (Not Detected); ROTAVIRUS A Not Detected (Not Detected); SALMONELLA Not Detected (Not Detected); SAPOVIRUS Not Detected (Not Detected); SHIGA-TOXIN-PRODUCING E COLI Not Detected (Not Detected); SHIGELLA/ENTEROINVASIVE E COLI Not Detected (Not Detected); VIBRIO Not Detected (Not Detected); VIBRIO CHOLERAE Not Detected (Not Detected); YERSINIA ENTEROCOLITICA Not Detected (Not Detected)
== END 2023-02-13 11:43 | disposition home or self-care (01) ==
LOC: EDUNIT# → ED 05:46
DX: N17.9 Acute kidney failure, unspecified (principal); E87.6 Hypokalemia; R11.2 Nausea with vomiting, unspecified; R19.7 Diarrhea, unspecified; I10 Essential (primary) hypertension; E78.00 Pure hypercholesterolemia, unspecified; Z98.2 Presence of cerebrospinal fluid drainage device; Z79.899 Other long term (current) drug therapy
CPT/HCPCS: 36415; 70450; 80053; 82272; 83690; 85025; 87493; 87507; 96361; 96374; 99284; A9270

== ENCOUNTER 2023-02-14 05:36 | Outpatient (CLI) | payer OTHER | END 2023-02-14 05:37 | disposition critical access hospital (66) | LOC: EMS 05:36 | DX: R11.2 Nausea with vomiting, unspecified (principal); R19.7 Diarrhea, unspecified; R68.83 Chills (without fever); R53.1 Weakness; R53.83 Other fatigue | CPT/HCPCS: A0425; A0429 ==

== ENCOUNTER 2023-02-14 05:40 | Emergency (ER) | payer MEDICARE, OTHER ==
[2023-02-14] MEDS ORDERED: SODIUM CHLORIDE 0.9% 1,000 ML IV STA (05:48)
[2023-02-14] MEDS ORDERED: DROPERIDOL 5 MG/2 ML VIAL IVP STA (05:48)
--- NOTE | 2023-02-14 06:02 | ED Physician Documentation ---
History of Present Illness - Stated complaint Stated Complaint: VOMITING - Chief complaint Chief Complaint: Abd Pain - History obtained from History obtained from: Patient - Additonal information Additional information: The patient comes to the emergency department chief complaint of recurrence of nausea and vomiting this morning. He was seen about 24 hours ago in our emergency department for nausea, vomiting, and diarrhea that had started just a couple of hours before. The patient states that he felt "terrible" after leaving here although according to the ED record, he was actually able to pablito erate oral fluids and reported feeling better before he left. Patient states he did not have any further vomiting throughout the day and that his vomiting did not restart till this morning. The patient denies any fevers or chills. He states no new symptoms have come up since yesterday. He states he does not really have any abdominal pain but just feels very nauseated. He has not had much diarrhea since yesterday. The patient states he lives alone with his at home and that she is not sick. 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 No other complaints at this time. Review of the records from yesterday reveals patient was worked up with labs, C. difficile test, and head CT. Workup was unremarkable. PD PAST MEDICAL HISTORY - Past Medical History Cardiovascular: Hypertension, High cholesterol Respiratory: None Neuro: CVA Endocrine/Autoimmune: None GI: GERD : None Psych: None Musculoskeletal: Other Derm: None - Past Surgical History Past Surgical History: Yes Ortho: Other Cardiovascular: Coronary stent Neuro: Craniotomy, STUDENT DRIVING INSTRUCTOR shunt HEENT: Other - Present Medications Home Medications: Ambulatory Orders Medication Instructions Recorded Confirmed Isosorbide Mononitrate [Isosorbide 30 mg PO DAILY 02/10/19 06/02/21 Mononitrate ER] Loratadine [Allergy] 10 mg PO DAILY 02/10/19 06/02/21 Losartan Potassium 100 mg PO DAILY 02/10/19 06/02/21 Nitroglycerin [Nitrostat] 0.4 mg PO [id number] PRN 02/10/19 06/02/21 Simvastatin 40 mg PO QPM 02/10/19 06/02/21 Tamsulosin HCl [Flomax] 0.4 mg PO QPM 02/10/19 06/02/21 Verapamil HCl [Verapamil ER] 180 mg PO DAILY 02/10/19 10/19/19 bisacodyL [Dulcolax] 5 mg PO DAILY PRN 02/10/19 06/02/21 Metoprolol Tartrate 100 mg PO BID 10/19/19 06/02/21 Pantoprazole Sodium 40 mg PO BID #60 10/20/19 06/02/21 Loperamide [Imodium] 2 mg PO QID PRN #20 tab 06/02/21 Ondansetron Odt [Zofran] 4 mg TL Q6H PRN #10 tablet 06/02/21 Ondansetron Odt [Zofran] 4 mg TL Q6H PRN #10 tablet 02/13/23 - Allergies Allergies/Adverse Reactions: Allergies Allergy/AdvReac Type Severity Reaction Status Date / Time No Known Drug Allergies Allergy Verified 02/14/23 05:57 - Social History Does the pt smoke?: No Smoking Status: Never smoker Does the pt drink ETOH?: No Does the pt have substance abuse?: No - Immunizations Immunizations are current?: Yes - POLST Patient has POLST: No PD ED PE NORMAL - Vitals Vital signs reviewed: Yes - General General: Well developed/nourished, Other (The patient is awake and appears uncomfortable but is not in distress.) - HEENT HEENT: Atraumatic, PERRL, EOMI, Moist mucous membranes - Neck Neck: Supple, no meningeal sign - Cardiac Cardiac: RRR, No murmur, Strong equal pulses - Respiratory Respiratory: No respiratory distress, Clear bilaterally - Abdomen Abdomen: Soft, Non tender, Non distended - Derm Derm: Normal color, Warm and dry, No rash - Extremities Extremities: No deformity, No edema - Neuro Neuro: Other (Alert, grossly oriented. No gross deficits on the right side; atrophy and contracture of the left arm and leg noted.) - Psych Psych: Normal mood, Normal affect Results - Vitals Vitals: Vital Signs - 24 hr 02/14/23 02/14/23 05:53 06:47 Temperature 36.9 C Heart Rate 66 52 L Respiratory 16 14 Rate Blood Pressure 174/89 H 162/69 H O2 Saturation 97 99 Oxygen O2 Source Room air - Labs Labs: Laboratory Tests 02/14/23 02/14/23 06:00 06:00 WBC 12.1 H RBC 4.42 L Hgb 13.8 L Hct 41.3 L MCV 93.4 MCH 31.2 H MCHC 33.4 RDW 13.0 Plt Count 215 MPV 8.6 Neut # (Auto) 10.2 H Lymph # (Auto) 0.9 L [place] # (Auto) 0.7 Eos # (Auto) 0.2 Baso # (Auto) 0.0 Absolute Nucleated RBC 0.00 Nucleated RBC % 0.0 Sodium 137 Potassium 4.0 Chloride 106 Carbon Dioxide 25 Anion Gap 6.0 BUN 30 H Creatinine 0.9 Estimated GFR (MDRD) 82 L Glucose 129 H Calcium 9.0 Total Bilirubin 0.5 AST 29 ALT 31 Alkaline Phosphatase 102 Total Protein 6.6 L Albumin 3.9 Globulin 2.7 Albumin/Globulin Ratio 1.4 Lipase 38 PD Medical Decision Making - ED course Complexity details: reviewed old records, reviewed results, re-evaluated patient, considered differential, d/w patient ED course: The patient was worked up with labs and given IV fluids and droperidol. The patient was feeling better after the fluids and droperidol and requested some ice chips. His CBC showed a mild leukocytosis. ER abdominal panel is pending. At this point in time, the patient signed out to Dr. Winn at change of shift, pending his metabolic panel and final disposition. Departure - Departure Clinical Impression: Vomiting Qualifiers: Vomiting type: unspecified Nausea presence: with nausea Qualified Code(s): R11.2 - Nausea with vomiting, unspecified Condition: Stable Instructions: ED Nausea Vomiting Comments: Your labs overall look fairly good. You have been treated with IV fluids and nausea medicine. It is very important that you or a family member pickler helper your nausea medicine at the pharmacy so you can take this at home and avoid this situation again. You most likely have a viral illness which will blow over on its own, given some days. You may follow-up with your primary doctor as needed. Forms: PCP List
[2023-02-14 06:09] LABS: BASOPHILS % (AUTO) 0.2 %; EOSINOPHILS # (AUTO) 0.2 10^3/uL (0.0-0.7); HCT - HEMATOCRIT 41.3 % (42.0-52.0); HGB - HEMOGLOBIN 13.8 g/dL (14.0-18.0); LYMPHOCYTES # (AUTO) 0.9 10^3/uL (1.5-3.5); LYMPHOCYTES % (AUTO) 7.1 %; MEAN CORPUSCULAR HEMOGLOBIN 31.2 pg (27.0-31.0); MEAN CORPUSCULAR HGB CONC 33.4 g/dL (32.0-36.0); MEAN CORPUSCULAR VOLUME 93.4 fL (80.0-94.0); MEAN PLATELET VOLUME 8.6 fL (7.4-11.4); MONOCYTES # (AUTO) 0.7 10^3/uL (0.0-1.0); MONOCYTES % (AUTO) 5.5 %; NEUTROPHILS # (AUTO) 10.2 10^3/uL (1.5-6.6); NEUTROPHILS % (AUTO) 84.9 %; PLT - PLATELET COUNT 215 10^3/uL (130-450); RED BLOOD COUNT 4.42 10^6/uL (4.70-6.10); WHITE BLOOD COUNT 12.1 x10^3/uL (4.8-10.8)
[2023-02-14 07:04] LABS: CREATININE 0.9 mg/dL (0.6-1.2)
[2023-02-14 07:06] LABS: BILIRUBIN,TOTAL 0.5 mg/dL (0.2-1.0); TOTAL PROTEIN 6.6 g/dL (6.7-8.2)
[2023-02-14 07:07] LABS: ALBUMIN 3.9 g/dL (3.2-5.5); ALBUMIN/GLOBULIN RATIO 1.4 (1.0-2.2)
[2023-02-14 10:58] VITALS: BP 158/88; O2SAT 96
== END 2023-02-14 10:43 | disposition home or self-care (01) ==
LOC: EDUNIT# → ED 05:40
DX: R11.2 Nausea with vomiting, unspecified (principal); I10 Essential (primary) hypertension; E78.00 Pure hypercholesterolemia, unspecified; I69.354 Hemiplegia and hemiparesis following cerebral infarction affecting left non-dominant side; Z79.899 Other long term (current) drug therapy
CPT/HCPCS: 36415; 80053; 83690; 85025; 96374; 99282

== ENCOUNTER 2023-07-28 14:43 | Outpatient (CLI) | payer OTHER ==
[2023-07-28 14:57] LABS: BASOPHILS # (AUTO) 0.1 10^3/uL (0.0-0.1); BASOPHILS % (AUTO) 0.6 %; EOSINOPHILS # (AUTO) 0.9 10^3/uL (0.0-0.7); EOSINOPHILS % (AUTO) 10.7 %; HCT - HEMATOCRIT 43.3 % (42.0-52.0); LYMPHOCYTES # (AUTO) 1.6 10^3/uL (1.5-3.5); MEAN CORPUSCULAR HEMOGLOBIN 30.4 pg (27.0-31.0); MEAN CORPUSCULAR HGB CONC 32.3 g/dL (32.0-36.0); MEAN CORPUSCULAR VOLUME 93.9 fL (80.0-94.0); MEAN PLATELET VOLUME 8.4 fL (7.4-11.4); MONOCYTES # (AUTO) 0.4 10^3/uL (0.0-1.0); MONOCYTES % (AUTO) 5.3 %; NEUTROPHILS # (AUTO) 5.1 10^3/uL (1.5-6.6); NEUTROPHILS % (AUTO) 63.2 %; PLT - PLATELET COUNT 205 10^3/uL (130-450); RED BLOOD COUNT 4.61 10^6/uL (4.70-6.10); RED CELL DISTRIBUTION WIDTH 13.2 % (12.0-15.0); WHITE BLOOD COUNT 8.1 x10^3/uL (4.8-10.8)
[2023-07-28 15:34] LABS: BUN - BLOOD UREA NITROGEN 18 mg/dL (6-20); CALCIUM 9.5 mg/dL (8.5-10.3); CARBON DIOXIDE - CO2 29 mmol/L (21-32); CHLORIDE 104 mmol/L (101-111); CHOL/HDL RATIO 2.8 (<5.0); CHOLESTEROL 121 mg/dL; GFR - MDRD 72 (>89); GLUCOSE 83 mg/dL (74-104); HDL CHOLESTEROL 44 mg/dL; LDL CHOLESTEROL,CALCULATED 42 mg/dL; POTASSIUM 3.8 mmol/L (3.5-4.5); SODIUM 138 mmol/L (135-145); TRIGLYCERIDES 174 mg/dL (48-352); VLDL CHOLESTEROL 35 mg/dL
== END 2023-07-28 14:44 | disposition home or self-care (01) ==
LOC: LAB 14:43
PROVIDERS: ATTEND Internal Medicine Cardiovascular Disease
DX: I25.10 Atherosclerotic heart disease of native coronary artery without angina pectoris (principal)
CPT/HCPCS: 36415; 80048; 80061; 83721; 85025

== ENCOUNTER 2023-09-03 15:33 | Outpatient (CLI) | payer MEDICARE ==
--- NOTE | 2023-09-04 06:16 | Ultrasound Report ---
PROCEDURE: Renal (Retroperitoneal) INDICATIONS: ACQUIRED COMPLEX CYST OF KIDNEY TECHNIQUE: Real-time scanning was performed of the retroperitoneal organs, with image documentation. COMPARISON: 07/15/2022 FINDINGS: Right kidney measures 11 cm. The left kidney measures 10 cm. There is cortical thinning bilaterally, under 1 cm. Bladder volume was 66 cc. Both ureteral jets were seen. Post void was not performed. Patient was whee lchair bound. Right upper pole renal cyst measures 1.9 x 1.8 cm. Mass versus complicated cyst in the mid region measures 2.9 x 2.7 cm. Very limited due to patient status. IMPRESSION: Very limited exam due to patient factors. Right renal mid region mass versus complicated cyst is probably smaller, measuring 2.9 x 2.7 cm. Prev ious sonographic measurements were 3.9 x 3.8 cm. Reviewed by: Mohan Peterson MD on 09/04/2023 6:15 AM PDT Approved by: Mohan Peterson MD on 09/04/2023 6:15 AM PDT Station ID: [id number]
== END 2023-09-03 15:34 | disposition home or self-care (01) ==
LOC: DI 15:33
PROVIDERS: ATTEND Physician Assistant Medical
DX: N28.1 Cyst of kidney, acquired (principal)

== ENCOUNTER 2023-10-08 12:13 | Outpatient (CLI) | payer MEDICARE | END 2023-10-08 23:59 | disposition critical access hospital (66) | LOC: EMS 12:13 | DX: R53.1 Weakness (principal); R32 Unspecified urinary incontinence; R41.0 Disorientation, unspecified; R52 Pain, unspecified; N39.0 Urinary tract infection, site not specified | CPT/HCPCS: A0425; A0429 ==

== ENCOUNTER 2023-10-08 12:18 | Emergency (ER) | payer MEDICARE ==
--- NOTE | 2023-10-08 13:04 | ED Physician Documentation ---
History of Present Illness - Stated complaint Stated Complaint: GEN WEAKNESS - Chief complaint Chief Complaint: Cardiac - History obtained from History obtained from: Patient, EMS - Additonal information Additional information: 78-year-old male with a history of hypertension, hyperlipidemia, stroke with left-sided paralysis, coronary stents, craniotomy and OUTDOOR PURSUITS INSTRUCTOR shunt presents to the emergency department stating that he has left-sided body pain. He states that this started yesterday. Has not taken anything for the pain. Denies any recent falls. Reportedly he was just [facility]. Has been on antibiotics for a "UTI". He apparently has been on Levaquin and cefadroxil for this. Review of Systems Unable to obtain: Dementia PD PAST MEDICAL HISTORY - Past Medical History Cardiovascular: Hypertension, High cholesterol Respiratory: None Neuro: CVA Endocrine/Autoimmune: None GI: GERD : None Psych: None Musculoskeletal: Other Derm: None - Past Surgical History Past Surgical History: Yes Ortho: Other Cardiovascular: Coronary stent Neuro: Craniotomy, OUTDOOR PURSUITS INSTRUCTOR shunt HEENT: Other - Present Medications Home Medications: Ambulatory Orders Medication Instructions Recorded Confirmed Isosorbide Mononitrate [Isosorbide 30 mg PO DAILY 02/10/19 06/02/21 Mononitrate ER] Loratadine [Allergy] 10 mg PO DAILY 02/10/19 06/02/21 Losartan Potassium 100 mg PO DAILY 02/10/19 06/02/21 Nitroglycerin [Nitrostat] 0.4 mg PO [id number] PRN 02/10/19 06/02/21 Simvastatin 40 mg PO QPM 02/10/19 06/02/21 Tamsulosin HCl [Flomax] 0.4 mg PO QPM 02/10/19 06/02/21 Verapamil HCl [Verapamil ER] 180 mg PO DAILY 02/10/19 10/19/19 bisacodyL [Dulcolax] 5 mg PO DAILY PRN 02/10/19 06/02/21 Metoprolol Tartrate 100 mg PO BID 10/19/19 06/02/21 Pantoprazole Sodium 40 mg PO BID #60 10/20/19 06/02/21 Loperamide [Imodium] 2 mg PO QID PRN #20 tab 06/02/21 Ondansetron Odt [Zofran] 4 mg TL Q6H PRN #10 tablet 06/02/21 Ondansetron Odt [Zofran] 4 mg TL Q6H PRN #10 tablet 02/13/23 Oseltamivir [Tamiflu] 75 mg PO BID 5 Days #10 cap 08/13/23 - Allergies Allergies/Adverse Reactions: Allergies Allergy/AdvReac Type Severity Reaction Status Date / Time No Known Drug Allergies Allergy Verified 10/08/23 12:38 - Social History Does the pt smoke?: No Smoking Status: Never smoker Does the pt drink ETOH?: No Does the pt have substance abuse?: No - Immunizations Immunizations are current?: Yes - POLST Patient has POLST: No PD ED PE NORMAL - Vitals Vital signs reviewed: Yes - General General: No acute distress, Other (L sided paralysis with L arm contracture. alert, oriented to person and place, not to time) - HEENT HEENT: PERRL, Moist mucous membranes, Other (very [place], hears best out of the R e ar) - Neck Neck: Supple, no meningeal sign - Cardiac Cardiac: RRR, Strong equal pulses - Respiratory Respiratory: No respiratory distress, Clear bilaterally - Abdomen Abdomen: Soft, Non tender, Non distended - Derm Derm: Warm and dry, No rash - Extremities Extremities: No edema - Neuro Neuro: Other (alert, oriented to person and place, not to time) Results - Vitals Vitals: Vital Signs - 24 hr 10/08/23 10/08/23 10/08/23 12:33 13:08 15:00 Temperature 36.5 C Heart Rate 102 H 105 H 88 Respiratory 18 15 15 Rate Blood Pressure 183/104 H 183/105 H 199/98 H O2 Saturation 100 99 96 10/08/23 17:00 Temperature Heart Rate 82 Respiratory 13 Rate Blood Pressure 174/95 H O2 Saturation 99 Oxygen O2 Source Room air - EKG (time done) 1320 EKG releavant findings:: EKG personally interpreted by author of this note. Relevant findings are: Rate: Rate (enter#) (99) Rhythm: NSR [place]: Normal Intervals: Normal CT QRS: Normal Ischemia: Q waves (II, III, avF), Other (borderline ST elevaton v3-5) 1347 EKG releavant findings:: EKG personally interpreted by author of this note. Relevant findings are: Rate: Rate (enter#) (97) Rhythm: NSR Intervals: Normal CT QRS: Normal Ischemia: Other (borderlne ST elevation V3-5) - Labs Labs: Laboratory Tests 10/08/23 10/08/23 13:10 13:10 WBC 12.2 H RBC 5.03 Hgb 15.7 Hct 46.7 MCV 92.8 MCH 31.2 H MCHC 33.6 RDW 13.7 Plt Count 200 MPV 8.9 Neut # (Auto) 10.5 H Lymph # (Auto) 0.9 L [place] # (Auto) 0.7 Eos # (Auto) 0.0 Baso # (Auto) 0.0 Absolute Nucleated RBC 0.00 Nucleated RBC % 0.0 Sodium 137 Potassium 3.3 L Chloride 102 Carbon Dioxide 23 Anion Gap 12.0 BUN 19 Creatinine 0.7 Estimated GFR (MDRD) 109 Glucose 112 H Calcium 9.9 Total Bilirubin 0.8 AST 51 H ALT 20 Alkaline Phosphatase 117 Troponin I High Sens 4969.3 H* Total Protein 7.9 Albumin 4.4 Globulin 3.5 Albumin/Globulin Ratio 1.3 Lipase 16 - Rads (name of study) cxr Relevant Findings:: Final report received, See rad report PD Medical Decision Making - ED course Complexity details: reviewed results, re-evaluated patient, considered diff erential, d/w patient, d/w family, d/w dietitian consultant ED course: Called and discussed the patient's care with his . She states that he is very hard of hearing, history of dementia. She states that he is full code. History of a brain aneurysm in 2003. OUTDOOR PURSUITS INSTRUCTOR shunt placed after that. Had 2 cardiac stents in 2007. This was all done in [place]. She believes that he has seen a casing fluid tender at [facility] in [place], but she is not sure of this. She states that he did not complain of any chest pain to her, but the patient is adamant about left-sided chest pain since yesterday when I speak with him. He was given a dose of Lovenox, 1 mg/kg subcu. Given aspirin 324 mg p.o. Given 25 mg metoprolol. Pain resolved with morphine 4 mg. Discussed the case with Dr. Jc, cardiology at [facility] in [place], recommends transfer to the hospitalist service. Discussed with Dr. Geovanni Olson, hospitalist who accepts. COBRA forms completed. This document was made in part using voice recognition software. While efforts are made to proofread this document, sound alike and grammatical errors may occur. Departure - Departure Disposition: 02 Transfer Acute Care Hosp Clinical Impression: NSTEMI (non-ST elevated myocardial infarction) Condition: Stable Forms: PCP List
[2023-10-08 13:25] LABS: BASOPHILS % (AUTO) 0.2 %; EOSINOPHILS % (AUTO) 0.2 %; HCT - HEMATOCRIT 46.7 % (42.0-52.0); HGB - HEMOGLOBIN 15.7 g/dL (14.0-18.0); LYMPHOCYTES # (AUTO) 0.9 10^3/uL (1.5-3.5); LYMPHOCYTES % (AUTO) 7.6 %; MEAN CORPUSCULAR HEMOGLOBIN 31.2 pg (27.0-31.0); MEAN CORPUSCULAR HGB CONC 33.6 g/dL (32.0-36.0); MEAN CORPUSCULAR VOLUME 92.8 fL (80.0-94.0); MEAN PLATELET VOLUME 8.9 fL (7.4-11.4); MONOCYTES # (AUTO) 0.7 10^3/uL (0.0-1.0); MONOCYTES % (AUTO) 5.6 %; NEUTROPHILS # (AUTO) 10.5 10^3/uL (1.5-6.6); NEUTROPHILS % (AUTO) 85.7 %; PLT - PLATELET COUNT 200 10^3/uL (130-450); RED BLOOD COUNT 5.03 10^6/uL (4.70-6.10); RED CELL DISTRIBUTION WIDTH 13.7 % (12.0-15.0); WHITE BLOOD COUNT 12.2 x10^3/uL (4.8-10.8)
[2023-10-08 13:35] LABS: ALBUMIN 4.4 g/dL (3.2-5.5); ALBUMIN/GLOBULIN RATIO 1.3 (1.0-2.2); BILIRUBIN,TOTAL 0.8 mg/dL (0.2-1.0); CALCIUM 9.9 mg/dL (8.5-10.3); CREATININE 0.7 mg/dL (0.6-1.3); POTASSIUM 3.3 mmol/L (3.5-4.5); TOTAL PROTEIN 7.9 g/dL (6.4-8.9)
[2023-10-08 13:40] LABS: TROPONIN I HIGH SENSITIVITY 4969.3 ng/L (2.3-19.7)
[2023-10-08] MEDS: ASPIRIN CHEW 81 MG TABLET PO STA (13:49)
[2023-10-08] MEDS: ENOXAPARIN 80 MG/0.8 ML SYRINGE SUBQ STA (13:52)
[2023-10-08] MEDS: MORPHINE 2 MG/ML CARPUJECT IVP STA (14:06)
--- NOTE | 2023-10-08 15:29 | XRAY Report ---
PROCEDURE: Chest 1V INDICATIONS: Chest Pain TECHNIQUE: One view of the chest was acquired. COMPARISON: 05/04/2019 FINDINGS: Surgical changes and devices: Right TROMBONE SLIDE ASSEMBLER shunt again noted. Lungs and pleura: No pleural effusions or pneumothorax. Lungs are clear. Mediastinum: Mediastinal contours appear normal. Heart size is normal. Bones and chest wall: No suspicious bony lesions. Stable appearance of left rib fracture deformities . Overlying soft tissues appear unremarkable. IMPRESSION: No acute cardiopulmonary process. No focal consolidation. Reviewed by: Darwin Arndt MD on 10/08/2023 3:27 PM PDT Approved by: Darwin Arndt MD on 10/08/2023 3:27 PM PDT Station ID: [id number]
[2023-10-08] MEDS: METOPROLOL TARTRATE 25 MG TABLET PO STA (16:01)
[2023-10-08 17:16] VITALS: BP 174/95; O2SAT 99
== END 2023-10-08 17:15 | disposition short-term general hospital (02) ==
LOC: EDUNIT# → ED 12:18
DX: I21.4 Non-ST elevation (NSTEMI) myocardial infarction (principal); I10 Essential (primary) hypertension
CPT/HCPCS: 36415; 71045; 80053; 83690; 84484; 85025; 93005; 96372; 96374; 99285; A9270; J1650

== ENCOUNTER 2023-10-08 17:52 | Outpatient (CLI) | payer MEDICARE | END 2023-10-08 23:59 | disposition short-term general hospital (02) | LOC: EMS 17:52 | PROVIDERS: ATTEND Emergency Medicine | DX: I21.4 Non-ST elevation (NSTEMI) myocardial infarction (principal) | CPT/HCPCS: A0425; A0426 ==

== ENCOUNTER 2023-10-16 12:12 | Outpatient (CLI) | payer MEDICARE | END 2023-10-16 23:59 | disposition critical access hospital (66) | LOC: EMS 12:12 | DX: R53.1 Weakness (principal) | CPT/HCPCS: A0425; A0429 ==

== ENCOUNTER 2023-10-16 12:19 | Emergency (ER) | payer MEDICARE ==
--- NOTE | 2023-10-16 12:28 | ED Physician Documentation ---
PD HPI CHEST PAIN - Stated complaint Stated Complaint: GENERAL ILLNESS - Chief complaint Chief Complaint: Cardiac - History obtained from History obtained from: Patient, Family, EMS - History of Present Illness Timing - onset: How many hours ago (2), Today Timing - duration: Hours (1) Timing - details: Abrupt onset, Now resolved Quality: Pressure, Tightness Location: Substernal, Left chest Recently seen: Other (had chest pain with elevated troponin of over 4900 and transferred to [facility] and had stent placed per pt and to medics.) PD PAST MEDICAL HISTORY - Past Medical History Past Medical History: Yes Cardiovascular: Hypertension, High cholesterol Respiratory: None Neuro: CVA Endocrine/Autoimmune: None GI: GERD : None Psych: None Musculoskeletal: Other Derm: None - Past Surgical History Past Surgical History: Yes Ortho: Other Cardiovascular: Coronary stent Neuro: Craniotomy, PRODUCT SCIENTIST shunt HEENT: Other - Present Medications Home Medications: Ambulatory Orders Medication Instructions Recorded Confirmed Isosorbide Mononitrate [Isosorbide 30 mg PO DAILY 02/10/19 06/02/21 Mononitrate ER] Loratadine [Allergy] 10 mg PO DAILY 02/10/19 06/02/21 Losartan Potassium 100 mg PO DAILY 02/10/19 06/02/21 Nitroglycerin [Nitrostat] 0.4 mg PO [id number] PRN 02/10/19 06/02/21 Simvastatin 40 mg PO QPM 02/10/19 06/02/21 Tamsulosin HCl [Flomax] 0.4 mg PO QPM 02/10/19 06/02/21 Verapamil HCl [Verapamil ER] 180 mg PO DAILY 02/10/19 10/19/19 bisacodyL [Dulcolax] 5 mg PO DAILY PRN 02/10/19 06/02/21 Metoprolol Tartrate 100 mg PO BID 10/19/19 06/02/21 Pantoprazole Sodium 40 mg PO BID #60 10/20/19 06/02/21 Loperamide [Imodium] 2 mg PO QID PRN #20 tab 06/02/21 Ondansetron Odt [Zofran] 4 mg TL Q6H PRN #10 tablet 06/02/21 Ondansetron Odt [Zofran] 4 mg TL Q6H PRN #10 tablet 02/13/23 Oseltamivir [Tamiflu] 75 mg PO BID 5 Days #10 cap 08/13/23 - Allergies Allergies/Adverse Reactions: Allergies Allergy/AdvReac Type Severity Reaction Status Date / Time No Known Drug Allergies Allergy Verified 10/08/23 12:38 - Social History Does the pt smoke?: No Smoking Status: Never smoker Does the pt drink ETOH?: No Does the pt have substance abuse?: No - Immunizations Immunizations are current?: Yes - POLST Patient has POLST: No PD ED PE NORMAL - Vitals Vital signs reviewed: Yes - General General: Alert and oriented X 3, No acute distress, Well developed/nourished - Derm Derm: Normal color, Warm and dry - Extremities Extremities: No edema, No calf tenderness / cord - Neuro Neuro: Other (left arm and leg weakness c/w prior CVA remotely. ) Results - Vitals Vitals: Vital Signs - 24 hr 10/16/23 10/16/23 10/16/23 12:20 14:26 16:00 Temperature 36.6 C Heart Rate 69 51 L 51 L Respiratory 16 12 14 Rate Blood Pressure 147/83 H 158/99 H 169/85 H O2 Saturation 98 96 Oxygen O2 Source Room air - EKG (time done) 12:23 EKG releavant findings:: EKG personally interpreted by author of this note. Relevant findings are: Rate: Rate (enter#) (56) Rhythm: Sinus bradycardia [place]: Normal Intervals: Normal [place] QRS: Normal Ischemia: Normal ST segments. No: ST elevation c/w ischemia, ST depression - Labs Labs: Laboratory Tests 10/16/23 10/16/23 10/16/23 12:39 12:39 12:39 WBC 11.5 H RBC 4.03 L Hgb 12.4 L Hct 39.0 L MCV 96.8 H MCH 30.8 MCHC 31.8 L RDW 13.9 Plt Count 277 MPV 8.4 Neut # (Auto) 8.5 H Lymph # (Auto) 1.6 [place] # (Auto) 0.7 Eos # (Auto) 0.6 Baso # (Auto) 0.1 Absolute Nucleated RBC 0.00 Nucleated RBC % 0.0 Sodium 139 Potassium 4.2 Chloride 109 Carbon Dioxide 26 Anion Gap 4.0 L BUN 23 H Creatinine 0.9 Estimated GFR (MDRD) 82 L Glucose 92 Calcium 9.1 Magnesium 1.8 Total Bilirubin 0.9 AST 29 ALT 38 Alkaline Phosphatase 191 H Troponin I High Sens 416.4 H* B-Natriuretic Peptide 341 H Total Protein 6.8 Albumin 3.7 Globulin 3.1 Albumin/Globulin Ratio 1.2 Lipase 85 H 10/16/23 15:19 WBC RBC Hgb Hct MCV MCH MCHC RDW Plt Count MPV Neut # (Auto) Lymph # (Auto) [place] # (Auto) Eos # (Auto) Baso # (Auto) Absolute Nucleated RBC Nucleated RBC % Sodium Potassium Chloride Carbon Dioxide Anion Gap BUN Creatinine Estimated GFR (MDRD) Glucose Calcium Magnesium Total Bilirubin AST ALT Alkaline Phosphatase Troponin I High Sens 355.6 H* B-Natriuretic Peptide Total Protein Albumin Globulin Albumin/Globulin Ratio Lipase - Rads (name of study) chest xray Relevant Findings:: Prelim report reviewed, EMP independent interpretation of test (no acute process.) PD Medical Decision Making - ED course Complexity details: reviewed results (troponin at that time was 4969, so the level of 416, 355 today in decreasing amount is c/w flush out of prior level as opposed to new injury. ), considered differential (history of CAD and had NH with stent 8 days ago. Had brief chest pain/dyspnea episode this morning that resolved enroute. Can get ECG/CXR/Trop to eval for new injury/stent failure. ), d/w patient Departure - Departure Disposition: 01 Home, Self Care Clinical Impression: Chest pain Record reviewed to determine appropriate education?: Yes Instructions: ED Chest Pain Atypical Unkn Cause Comments: Your chest pain episode this morning does not appear to relate to an new heart injury. Your heart muscle enzyme called troponin is elevated on your blood test and a repeat 2:01 hours was lower which signifies a continued drift down from your much higher elevation a week ago when you had the stent. This is essentially still phasing out which is typically will take a couple of weeks. No signs of new injury or acute problems. Follow-up with your primary care. Continue with your current usual medicines. Forms: PCP List Discharge Date/Time: 10/16/23 17:25
[2023-10-16 12:56] LABS: BASOPHILS # (AUTO) 0.1 10^3/uL (0.0-0.1); BASOPHILS % (AUTO) 0.5 %; EOSINOPHILS # (AUTO) 0.6 10^3/uL (0.0-0.7); EOSINOPHILS % (AUTO) 5.3 %; HGB - HEMOGLOBIN 12.4 g/dL (14.0-18.0); LYMPHOCYTES # (AUTO) 1.6 10^3/uL (1.5-3.5); LYMPHOCYTES % (AUTO) 13.7 %; MEAN CORPUSCULAR HEMOGLOBIN 30.8 pg (27.0-31.0); MEAN CORPUSCULAR HGB CONC 31.8 g/dL (32.0-36.0); MEAN CORPUSCULAR VOLUME 96.8 fL (80.0-94.0); MEAN PLATELET VOLUME 8.4 fL (7.4-11.4); MONOCYTES # (AUTO) 0.7 10^3/uL (0.0-1.0); MONOCYTES % (AUTO) 5.7 %; NEUTROPHILS # (AUTO) 8.5 10^3/uL (1.5-6.6); NEUTROPHILS % (AUTO) 73.8 %; PLT - PLATELET COUNT 277 10^3/uL (130-450); RED BLOOD COUNT 4.03 10^6/uL (4.70-6.10); RED CELL DISTRIBUTION WIDTH 13.9 % (12.0-15.0); WHITE BLOOD COUNT 11.5 x10^3/uL (4.8-10.8)
[2023-10-16 13:26] LABS: ALBUMIN 3.7 g/dL (3.2-5.5); ALBUMIN/GLOBULIN RATIO 1.2 (1.0-2.2); BILIRUBIN,TOTAL 0.9 mg/dL (0.2-1.0); CALCIUM 9.1 mg/dL (8.5-10.3); CREATININE 0.9 mg/dL (0.6-1.3); MAGNESIUM 1.8 mg/dL (1.7-2.3); POTASSIUM 4.2 mmol/L (3.5-4.5); TOTAL PROTEIN 6.8 g/dL (6.4-8.9)
--- NOTE | 2023-10-16 13:27 | XRAY Report ---
PROCEDURE: Chest 1V INDICATIONS: Chest Pain TECHNIQUE: One view of the chest was acquired. COMPARISON: 10/08/2023 FINDINGS: Surgical changes and devices: Right ventriculoperitoneal shunt catheter traverses the right chest. Lungs and pleura: No pleural effusions or pneumothorax. Lungs are clear. Mediastinum: Mediastinal contours appear normal. Heart size is normal. Bones and chest wall: No suspicious bony lesions. Overlying soft tissues appear unremarkable. IMPRESSION: No acute cardiopulmonary findings Reviewed by: Lopez López MD on 10/16/2023 12:25 PM AKDT Approved by: Lopez López MD on 10/16/2023 12:25 PM AKDT Station ID: [id number]
[2023-10-16 13:35] LABS: TROPONIN I HIGH SENSITIVITY 416.4 ng/L (2.3-19.7)
[2023-10-16 15:02] VITALS: O2SAT 96
[2023-10-16 16:04] VITALS: BP 169/85
== END 2023-10-16 17:25 | disposition home or self-care (01) ==
LOC: ED 12:19
DX: R07.89 Other chest pain (principal); I44.4 Left anterior fascicular block; I25.10 Atherosclerotic heart disease of native coronary artery without angina pectoris; I21.9 Acute myocardial infarction, unspecified; Z79.899 Other long term (current) drug therapy
CPT/HCPCS: 36415; 80053; 83690; 83735; 83880; 84484; 85025; 93005; 99283; 99284

== ENCOUNTER 2023-10-16 17:35 | Outpatient (CLI) | payer MEDICARE | END 2023-10-16 23:59 | disposition home or self-care (01) | LOC: EMS 17:35 | PROVIDERS: ATTEND Emergency Medicine | DX: R53.1 Weakness (principal); R41.0 Disorientation, unspecified; F03.90 Unspecified dementia, unspecified severity, without behavioral disturbance, psychotic disturbance, mood disturbance, and anxiety | CPT/HCPCS: A0425; A0428 ==

== ENCOUNTER 2023-10-24 14:36 | Outpatient (CLI) | payer MEDICARE ==
[2023-10-24 14:59] LABS: BILIRUBIN,URINE NEGATIVE (NEGATIVE); GLUCOSE, URINE (UA) 500 mg/dL (NEGATIVE); KETONES,URINE (UA) NEGATIVE (NEGATIVE); LEUKOCYTE ESTERASE, URINE NEGATIVE (NEGATIVE); NITRITE,URINE NEGATIVE (NEGATIVE); OCCULT BLOOD,URINE NEGATIVE (NEGATIVE); PROTEIN,URINE 30 mg/dL (NEGATIVE); UROBILINOGEN,URINE 0.2 (NORMAL) E.U./dL (NORMAL)
[2023-10-24 15:04] LABS: CLARITY,URINE CLEAR (CLEAR)
[2023-10-24 15:53] LABS: AMORPHOUS SEDIMENT,UR Few /LPF; BACTERIA,URINE Rare /HPF (None Seen); RBC,URINE 0-5 /HPF (0-5); SQUAMOUS EPITHELIAL CELL,UR RARE Squamous (<= Few); WBC,URINE 0-3 /HPF (0-3)
== END 2023-10-24 14:37 | disposition home or self-care (01) ==
LOC: LAB 14:36
PROVIDERS: ATTEND Internal Medicine
DX: R39.9 Unspecified symptoms and signs involving the genitourinary system (principal)
CPT/HCPCS: 81001; 87086

== ENCOUNTER 2023-11-13 23:31 | Outpatient (CLI) | payer MEDICARE | END 2023-11-13 23:32 | disposition EMS.NT | LOC: EMS 23:31 | DX: Z03.89 Encounter for observation for other suspected diseases and conditions ruled out (principal) ==